=== PATIENT | female | born 1985 | race Caucasian/White ===

== ENCOUNTER 2016-09-20 16:38 | Inpatient (IN) ==
--- NOTE | 2016-09-20 17:27 | Emergency Department Note ---
Disposition Clinical Impression: NSTEMI (non-ST elevated myocardial infarction), Elevated troponin, Chest pain Disposition: Admitted As Inpatient Condition: Fair General Adult HPI - General Chief complaint: ED Chest Pain Stated complaint: C/P Time Seen by Provider: 09/20/16 17:05 Source: patient Limitations: no limitations Nursing Notes Reviewed: Yes Vital Signs Reviewed: Yes - History of Present Illness Pain Scale: 10 - Related Data Home Medications Medication Instructions Recorded Confirmed No Known Home Drugs 09/20/16 09/20/16 Allergies Allergy/AdvReac Type Severity Reaction Status Date / Time No Known Allergies Allergy Verified 05/04/15 14:18 Past Medical History - Past Medical History Medical history: Reports: diabetes, hypertension, myocardial infarction, other Surgical history: Reports: no surgical history 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 - Social History Smoking Status: Current every day smoker Smokeless Tobacco Status: No Alcohol use: Reports: occasionally Drug use: Reports: marijuana Physical Exam - General Limitations: no limitations General appearance: alert Course Vital Signs Temperature 97.9 F 09/20/16 16:56 Pulse Rate 89 09/20/16 16:56 Respiratory Rate 18 09/20/16 16:56 Blood Pressure 170/116 09/20/16 16:56 O2 Sat by Pulse Oximetry 98 09/20/16 16:56 Temperature 97.9 F 09/20/16 16:56 Pulse Rate 78 09/20/16 18:30 Respiratory Rate 18 09/20/16 18:30 Blood Pressure 143/104 09/20/16 18:30 O2 Sat by Pulse Oximetry 99 09/20/16 18:30 Oxygen Delivery Oxygen Delivery Room Air Medical Decision Making - MDM Narrative Medical decision making narrative: I examined this patient and my medical decision-making was reviewed with the Resident Physician. I agree with the documented findings, disposition and treatment plan as described except to the extent set forth below. Patient seen and evaluated on arrival with Dr. Roblero, I agree with his evaluation and management plan, I supervised the care of the patient's stay. Patient presents with chest discomfort today that for the last couple hours. Rating up into her shoulder. She denies any sweats. Denies any calf or leg pain. Despite her young age she has had a history of a stent in the past. And family history of coronary disease at a young age. Rando workup on her, and most likely admission. She is in agreement with this plan. Chest X-Ray 09/20/16 17:06 IMPRESSION: No acute process. D/ / Morris Nails MD / Morris Nails MD Interpreting Provider: Morris Nails MD 1800 hrs.: Lab called with an elevated troponin at 0.41. She has gotten her nitroglycerin here was started on heparin. Speaking with cardiology for admission. Impression is ACS. With history of cardiac stent. Patient's critical care care time exclusive separately billable procedures is 30 minutes. - Lab Data Result diagrams: 09/20/16 17:28 09/20/16 17:28 Lab Results 09/20/16 09/20/16 09/20/16 Range/Units 17:28 17:28 17:28 WBC 15.2 H (4.3-11.1) K/mcL RBC 5.14 H (3.82-4.97) M/mcL Hgb 13.8 (11.5-15.4) g/dL Hct 41.8 (35.3-44.9) % MCV 81.3 L (83.0-100.0) fL MCH 26.8 L (28.0-33.3) pg MCHC 33.0 (31.6-35.5) g/dL RDW 13.7 (11.5-14.5) % Plt Count 334 (140-400) K/mcL MPV 10.2 (9.4-12.4) fL Immature Gran % 0.3 (0-4) % Seg Neutrophils % 62.5 % Lymphocytes % 29.9 % Monocytes % 4.9 % Eosinophils % 1.5 % Basophils % 0.9 % Neutrophils # 9.5 H (1.6-8.9) K/mcL Lymphocytes # 4.6 (0.6-4.6) K/mcL Monocytes # 0.8 (0.0-1.3) K/mcL Eosinophils # 0.2 (0.0-0.6) K/mcL Basophils # 0.1 (0.0-0.2) K/mcL PT 11.8 (9.4-12.1) Seconds INR 1.1 APTT 30.8 (26.0-36.0) Seconds Sodium 132 L (136-145) mEq/L Potassium 4.0 (3.5-4.5) mEq/L Chloride 105 (98-109) mEq/L Carbon Dioxide 22 (19-29) mEq/L BUN 10 (7-20) mg/dL Creatinine 0.78 (0.57-1.11) mg/dL Est GFR ( Amer) > 60 (> 60) Est GFR (Non-Af Amer) > 60 (> 60) BUN/Creatinine Ratio 13 (6-26) Glucose 254 H (70-99) mg/dL Calculated Osmolality 282 (280-300) Calcium 9.2 (8.6-10.8) mg/dL Troponin I (0-0.03) ng/mL 09/20/16 Range/Units 17:28 WBC (4.3-11.1) K/mcL RBC (3.82-4.97) M/mcL Hgb (11.5-15.4) g/dL Hct (35.3-44.9) % MCV (83.0-100.0) fL MCH (28.0-33.3) pg MCHC (31.6-35.5) g/dL RDW (11.5-14.5) % Plt Count (140-400) K/mcL MPV (9.4-12.4) fL Immature Gran % (0-4) % Seg Neutrophils % % Lymphocytes % % Monocytes % % Eosinophils % % Basophils % % Neutrophils # (1.6-8.9) K/mcL Lymphocytes # (0.6-4.6) K/mcL Monocytes # (0.0-1.3) K/mcL Eosinophils # (0.0-0.6) K/mcL Basophils # (0.0-0.2) K/mcL PT (9.4-12.1) Seconds INR APTT (26.0-36.0) Seconds Sodium (136-145) mEq/L Potassium (3.5-4.5) mEq/L Chloride (98-109) mEq/L Carbon Dioxide (19-29) mEq/L BUN (7-20) mg/dL Creatinine (0.57-1.11) mg/dL Est GFR ( Amer) (> 60) Est GFR (Non-Af Amer) (> 60) BUN/Creatinine Ratio (6-26) Glucose (70-99) mg/dL Calculated Osmolality (280-300) Calcium (8.6-10.8) mg/dL Troponin I 0.41 H* (0-0.03) ng/mL
[2016-09-20] MEDS: Nitroglycerin 0.4 MG TAB.SUBL SL PRN ×3 (17:34→17:49)
[2016-09-20 17:37] LABS: Basophils # 0.1 K/mcL (0.0-0.2); Basophils % 0.9 %; Eosinophils # 0.2 K/mcL (0.0-0.6); Eosinophils % 1.5 %; Hematocrit 41.8 % (35.3-44.9); Hemoglobin 13.8 g/dL (11.5-15.4); Immature Granulocytes % 0.3 % (0-4); Lymphocytes # 4.6 K/mcL (0.6-4.6); Lymphocytes % 29.9 %; Mean Corpuscular Hemoglobin 26.8 pg (28.0-33.3); Mean Corpuscular Volume 81.3 fL (83.0-100.0); Mean Platelet Volume 10.2 fL (9.4-12.4); Monocytes # 0.8 K/mcL (0.0-1.3); Monocytes % 4.9 %; Neutrophils # 9.5 K/mcL (1.6-8.9); Platelet Count 334 K/mcL (140-400); Red Blood Count 5.14 M/mcL (3.82-4.97); Red Cell Distribution Width 13.7 % (11.5-14.5); Segmented Neutrophils % 62.5 %
[2016-09-20 17:40] LABS: INR 1.1; Prothrombin Time 11.8 Seconds (9.4-12.1)
[2016-09-20 17:42] LABS: Activated Partial Thrombo Time 30.8 Seconds (26.0-36.0)
[2016-09-20 17:46] LABS: BUN/Creatinine Ratio 13 (6-26); Blood Urea Nitrogen 10 mg/dL (7-20); Calcium 9.2 mg/dL (8.6-10.8); Carbon Dioxide 22 mEq/L (19-29); Chloride 105 mEq/L (98-109); Glucose 254 mg/dL (70-99); Osmolality,Calculated 282 (280-300); Sodium 132 mEq/L (136-145); eGFR For African Americans > 60 (> 60); eGFR For Non-African Americans > 60 (> 60)
--- NOTE | 2016-09-20 17:53 | Emergency Department Note ---
Disposition Clinical Impression: NSTEMI (non-ST elevated myocardial infarction), Elevated troponin Chest pain Qualifiers: Chest pain type: unspecified Qualified Code(s): R07.9 - Chest pain, unspecified Disposition: Admitted As Inpatient Condition: Fair Referrals: Shayla Perez MD [Primary Care Provider] - Forms: ED Satisfaction Letter Time of Disposition: 18:17 Chest Pain HPI - General Chief Complaint: ED Chest Pain Stated Complaint: C/P Time Seen by Provider: 09/20/16 17:05 Source: patient Mode of arrival: ambulatory Limitations: no limitations Vital Signs Reviewed: Yes Nursing Notes Reviewed: Yes - History of Present Illness HPI Narrative: Patient is a 31-year-old female with past medical history of ID, stent placement 1. Chest is a history of diabetes, hypertension, high cholesterol. She presents today due to chest pain that began Tuesday. It has been intermittent, lasts for about 15-20 minutes, substernal, radiation to left scapula, worse with exertion. She says that the pain has been going away after 15-20 minutes and that is why she has not sought medical attention. Today, the pain has been constant for the past hour or 2. Denies any nausea, vomiting, diarrhea, abdominal pain. She does state that this feels like her previous ID. Severity scale (1-10): 8 - Related Data Home Medications Medication Instructions Recorded Confirmed No Known Home Drugs 09/20/16 09/20/16 Allergies Allergy/AdvReac Type Severity Reaction Status Date / Time No Known Allergies Allergy Verified 05/04/15 14:18 All systems ED: reviewed and negative except as stated. 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 Absent : tenderness - Respiratory Respiratory exam: Present: normal lung sounds bilaterally - Cardiovascular Cardiovascular exam: Present: regular rate, normal rhythm, normal heart sounds - Abdominal Exam Abdominal exam: Present: soft, Non-Tender. Absent: tenderness, distention, guarding, rebound, rigidity - Extremities Exam Extremities exam: Present: normal inspection, full ROM. Absent: tenderness, pedal edema - Neurological Exam Neurological exam: Present: alert, oriented X3 - Psychiatric Psychiatric exam: Present: normal affect, normal mood - Skin Skin exam: Present: warm, dry, intact, normal color Course Course Narrative: Blood pressure was 170 systolic on presentation. Patient took 325 mg aspirin at home. She did not take any nitroglycerin at home. Physical exam shows no chest tenderness to palpation, lungs clear to auscultation. Due to history, cardiac workup was obtained. EKG shows normal sinus rhythm with T-wave inversions in V1, lead 2, Q waves in 2, 3, aVF. No acute changes from previous EKG in May 2016. Patient was given 3 nitroglycerin and pain went from a 10 to a 7 or 8. Troponin came back at 0.41. t We will start heparin drip, consult cardio, and admit to hospitalist. 18:[address] Moran with cardiology. He recommended heparin drip, nitroglycerin drip for pain control and loading dose of Plavix 600 mg at the patient has not been taking Plavix at home. Patient confirms that she is not taking any medication at home, not taking Plavix. We will start nitro drip and see if we can get pain down to 0. Vital Signs Temperature 97.9 F 09/20/16 16:56 Pulse Rate 89 09/20/16 16:56 Respiratory Rate 18 09/20/16 16:56 Blood Pressure 170/116 09/20/16 16:56 O2 Sat by Pulse Oximetry 98 09/20/16 16:56 Temperature 97.9 F 09/20/16 16:56 Pulse Rate 78 09/20/16 18:30 Respiratory Rate 18 09/20/16 18:30 Blood Pressure 143/104 09/20/16 18:30 O2 Sat by Pulse Oximetry 99 09/20/16 18:30 Oxygen Delivery Oxygen Delivery Room Air Chest Pain - MDM Narrative Medical decision making narrative: Blood pressure was 170 systolic on presentation. Patient took 325 mg aspirin at home. She did not take any nitroglycerin at home. Physical exam shows no chest tenderness to palpation, lungs clear to auscultation. Due to history, cardiac workup was obtained. EKG shows normal sinus rhythm with T-wave inversions in V1, lead 2, Q waves in 2, 3, aVF. No acute changes from previous EKG in May 2016. Patient was given 3 nitroglycerin and pain went from a 10 to a 7 or 8. Troponin came back at 0.41. t We will start heparin drip, consult cardio, and admit to hospitalist. 18:[address] Moran with cardiology. He recommended heparin drip, nitroglycerin drip for pain control and loading dose of Plavix 600 mg at the patient has not been taking Plavix at home. Patient confirms that she is not taking any medication at home, not taking Plavix. We will start nitro drip and see if we can get pain down to 0. - Medical Records Medical records reviewed: Yes I reviewed the patient's medical records. - Lab Data Lab results reviewed: Yes I reviewed the patient's lab results. Result diagrams: 09/20/16 17:28 09/20/16 17:28 Lab Results 09/20/16 09/20/16 09/20/16 Range/Units 17:28 17:28 17:28 WBC 15.2 H (4.3-11.1) K/mcL RBC 5.14 H (3.82-4.97) M/mcL Hgb 13.8 (11.5-15.4) g/dL Hct 41.8 (35.3-44.9) % MCV 81.3 L (83.0-100.0) fL MCH 26.8 L (28.0-33.3) pg MCHC 33.0 (31.6-35.5) g/dL RDW 13.7 (11.5-14.5) % Plt Count 334 (140-400) K/mcL MPV 10.2 (9.4-12.4) fL Immature Gran % 0.3 (0-4) % Seg Neutrophils % 62.5 % Lymphocytes % 29.9 % Monocytes % 4.9 % Eosinophils % 1.5 % Basophils % 0.9 % Neutrophils # 9.5 H (1.6-8.9) K/mcL Lymphocytes # 4.6 (0.6-4.6) K/mcL Monocytes # 0.8 (0.0-1.3) K/mcL Eosinophils # 0.2 (0.0-0.6) K/mcL Basophils # 0.1 (0.0-0.2) K/mcL PT 11.8 (9.4-12.1) Seconds INR 1.1 APTT 30.8 (26.0-36.0) Seconds Sodium 132 L (136-145) mEq/L Potassium 4.0 (3.5-4.5) mEq/L Chloride 105 (98-109) mEq/L Carbon Dioxide 22 (19-29) mEq/L BUN 10 (7-20) mg/dL Creatinine 0.78 (0.57-1.11) mg/dL Est GFR ( Amer) > 60 (> 60) Est GFR (Non-Af Amer) > 60 (> 60) BUN/Creatinine Ratio 13 (6-26) Glucose 254 H (70-99) mg/dL Calculated Osmolality 282 (280-300) Calcium 9.2 (8.6-10.8) mg/dL Troponin I (0-0.03) ng/mL 09/20/16 Range/Units 17:28 WBC (4.3-11.1) K/mcL RBC (3.82-4.97) M/mcL Hgb (11.5-15.4) g/dL Hct (35.3-44.9) % MCV (83.0-100.0) fL MCH (28.0-33.3) pg MCHC (31.6-35.5) g/dL RDW (11.5-14.5) % Plt Count (140-400) K/mcL MPV (9.4-12.4) fL Immature Gran % (0-4) % Seg Neutrophils % % Lymphocytes % % Monocytes % % Eosinophils % % Basophils % % Neutrophils # (1.6-8.9) K/mcL Lymphocytes # (0.6-4.6) K/mcL Monocytes # (0.0-1.3) K/mcL Eosinophils # (0.0-0.6) K/mcL Basophils # (0.0-0.2) K/mcL PT (9.4-12.1) Seconds INR APTT (26.0-36.0) Seconds Sodium (136-145) mEq/L Potassium (3.5-4.5) mEq/L Chloride (98-109) mEq/L Carbon Dioxide (19-29) mEq/L BUN (7-20) mg/dL Creatinine (0.57-1.11) mg/dL Est GFR ( Amer) (> 60) Est GFR (Non-Af Amer) (> 60) BUN/Creatinine Ratio (6-26) Glucose (70-99) mg/dL Calculated Osmolality (280-300) Calcium (8.6-10.8) mg/dL Troponin I 0.41 H* (0-0.03) ng/mL - Radiology Data Radiology results reviewed: Yes I reviewed the patient's radiology results. Chest X-Ray 09/20/16 17:06 IMPRESSION: No acute process. D/ / Morris Nails MD / Morris Nails MD Interpreting Provider: Morris Nails MD - EKG Data EKG attestation: Yes I reviewed and interpreted this EKG. EKG results narrative: 09/20/2016 at 17:09. No masses rhythm. Rate 77. HI 199. QRS 115. QTC 418. Normal axis. T-wave inversions in lead 3, V1. Q-wave in leads 2, 3, aVF. No acute ST elevation or depression. No acute changes from previous EKG on 2016. S.B.A.R. - S.B.A.R. Situation: Demographics, MOA Background: Presenting Complaint, Relevant PMH, Meds, & Allergies Assessment: Vital Signs, Course and respsone to treatment, Exam Concerns, Patient/Family Expectation, Pertinant Lab Results, Outstanding Labs Recommendation: Barrier(s) to disposition, Recommendation based on pending studies, treatments, or consults S.B.A.R. Report Given to: Keya GuzmánASarah Repor Time: 18:49
[2016-09-20] MEDS ORDERED: *HR* Heparin 5,000 UNIT/ML VIAL IVP PRN ×2 (18:00)
[2016-09-20] MEDS ORDERED: Heparin 25,000 UNIT/500 ML D5W 25,000 UNIT/500 ML MLS IVC SCH ×2 (18:00→20:45)
[2016-09-20] MEDS ORDERED: *HR* Heparin 5,000 UNIT/ML VIAL IVP ONE (18:00)
[2016-09-20] MEDS ORDERED: Nitroglycerin 25 MG/250 ML INFUS..BTL IVC SCH (18:15)
--- NOTE | 2016-09-20 20:02 | Internal Med History&Physical ---
<Bautista Lim - Last Filed: 09/21/16 02:20> Date of Encounter: 09/21/16 Time of Encounter: 19:58 Assessment and Plan (1) NSTEMI (non-ST elevated myocardial infarction) Current visit: Yes Status: Acute 31-year-old female with a history of hypertension, hyperlipidemia, coronary artery disease, drug-eluting stent 1 in the last year, type 2 diabetes and daily smoker admitted with chest pain and elevated troponin 1. Patient has been off her medications for 6 months. EKG demonstrates normal sinus rhythm with appropriate rate and axis, no MI prolongation or ST elevations or depressions. Compared to her previous EKG performed 05/06/2016 which had inverted T waves in V2. 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 - Trending troponins 3 (3) CAD (coronary artery disease) Current visit: No Status: Acute Significant medical history of coronary artery disease as mentioned above. - Atorvastatin 80 mg by mouth daily Qualifiers: Coronary Disease-Associated Artery/Lesion type: [place] artery [place] vs. transplanted heart: [place] heart Associated angina: with unstable angina Qualified Code(s): I25.110 - Atherosclerotic heart disease of [place] coronary artery with unstable angina pectoris (4) Diabetes Current visit: No Status: Acute Patient is a known type II diabetic with currently uncontrolled type 2 diabetes. Current glucose is 254. Patient states she has not taken any medications including her metformin for 6 months. Plan: - Before meals and at bedtime glucose checks - Low-dose insulin sliding scale Qualifiers: Qualified Code(s): E11.9 - Type 2 diabetes mellitus without complications (5) HTN (hypertension) Current visit: Yes Status: Acute Patient has known hypertension, current blood pressure is elevated. - Patient started on known of the therapy with Toprol-XL 25 mg - Address blood pressures if they stay elevated. Qualifiers: Qualified Code(s): I10 - Essential (primary) hypertension (6) Hyperlipidemia Current visit: Yes Status: Acute Patient is a history of hyperlipidemia currently not taking any medications at home. - With current medical conditions including diabetes, coronary artery disease, recent stent patient's LDL goal should be less than 50. Qualifiers: Qualified Code(s): E78.5 - Hyperlipidemia, unspecified (7) Tobacco abuse Current visit: Yes Status: Acute Daily tobacco abuser, 18 pack year history. - Likely contributing to patient's current medical conditions. - Smoking cessation has been discussed with the patient. Internal Medicine - H&P: HPI Chief complaint: chest pain Admitted From: Emergency Dept Plans for Post Hospital Care: Home History of present illness: Ms. Brady is a 31 year old female pmh BILL x1 to proximal LAD, coronary artery disease, type 2 diabetes, hypertension, hyperlipidemia, tobacco abuser, marijuana user was admitted to a [facility] with chest pain. Ms. Brady says she started having chest pain on Tuesday that originates substernally and radiated to her right shoulder blade. She said it was similar to her last heart attack but she was hoping that it would go away. She said the pain would wax and wane in nature but every time he came back it was worse in intensity. She waited the weekend hoping that it would improve on its own. She mentioned that she has not taken any of her prescription medications including Brilinta or aspirin for over 6 months as she was told her insurance had lapsed and she did not have any coverage. She does smoke 1 pack per day since the age of 14 and will give her a [id number] of smoking. The chest pain was described as crushing radiating to the right shoulder blade waxed and waned in nature. 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 She does mention that the chest pain improved significantly after starting the nitroglycerin drip and heparin drip but did not improve with sublingual nitroglycerin and she was on Imdur prior. She did have sweating, shortness of breath and a headache with these chest pains but denies any blurry vision, difficulty with swallowing, palpitations, abdominal pain nausea vomiting diarrhea constipation, swelling in her legs, change or burning or discomfort with urination or defecation. Past Med Surg Social Fam HX - Past Medical History Medical history: diabetes, hypertension, myocardial infarction, other Psychiatric history: no psych history - Past Surgical History Surgical History: no surgical history - Social History Smoking Status: Current every day smoker Smokeless Tobacco Status: No Alcohol use: occasionally Drug use: marijuana - Family History Father Living Status: Mother Living Status: Still Living Internal Medicine - H&P: Meds No Known Home Drugs 09/20/16 [History] Allergies No Known Allergies Allergy (Verified 05/04/15 14:18) All Systems PM: A 10-system review of systems was performed and is negative for pertinent findings except as documented above in the HPI. - Constitutional Constitutional: night sweats, no chills, no fever(s) - EENT Eyes: no change in vision, no discharge, no pain, no photophobia Ears: no ear discharge, no ear pain, no tinnitus Nose, mouth and throat: no dysphagia, no nasal discharge, no neck pain, no sore throat - Cardiovascular Cardiovascular ROS IM: chest pain, dyspnea, no diaphoresis, no lightheadedness, no palpitations, no syncope - Respiratory Respiratory: no cough, no dyspnea, no wheezing, no excessive phlegm production - Gastrointestinal Gastrointestinal: no abdominal pain, no diarrhea, no hematemesis, no hematochezia, no melena, no nausea, no vomiting - Genitourinary Genitourinary: no change in urinary stream, no dysuria, no flank pain, no hematuria - Musculoskeletal Musculoskeletal ROS IM: no numbness, no tingling - Integumentary Integumentary IM: no rash, no unusual bruising - Neurological Neurological ROS: no confusion, no convulsions, no focal weakness, no numbness, no tingling, no tremor(s) - Hematologic/Lymphatic Hematologic/Lymphatic: no easy bruising - Constitutional Vitals: Temp Pulse Resp BP Pulse Ox 98.1 F 73 16 137/67 96 09/20/16 19:48 09/20/16 19:48 09/20/16 19:48 09/20/16 19:48 09/20/16 19:48 - Head Head exam: Present: atraumatic, normocephalic - Eye Eye exam: Present: PERRL, conjuntiva pink, sclera anicteric Pupils: Present: PERRL - Neck Neck exam general surgery: Present: supple, trachea midline. Absent: lymphadenopathy - Respiratory Respiratory exam: Present: CTAB. Absent: accessory muscle use, rales, rhonchi, wheezes - Cardiovascular Cardiovascular exam: Present: RRR, +S1, +S2. Absent: diastolic murmur, gallop, rubs, systolic murmur - GI/Abdominal GI/Abdominal exam: Present: normal bowel sounds, soft, no peritoneal signs. Absent: distended, tenderness - Extremities Exam Extremities exam: Present: warm, radial pulses palpable and symetrical. Absent : calf tenderness, cyanotic, pedal edema - Neurological Exam Neurological exam: Present: CN II-XII intact, oriented X3, no focal deficits. Absent: pronater drift, facial droop, speech deficit - Skin Skin exam: Present: dry, intact Internal Med - H&P Results - Labs CBC & Chem 7: 09/21/16 01:12 09/21/16 01:12 <Konstantin Wilson - Last Filed: 09/21/16 02:56> Date of Encounter: 09/21/16 - Cardiovascular Cardiovascular ROS IM: chest pain, dyspnea, dyspnea on exertion - Respiratory Respiratory: no cough, no hemoptysis - Musculoskeletal Musculoskeletal ROS IM: no arthralgias, no back pain - Psychiatric Psychiatric: no anxiety, no depression - Endocrine Endocrine IM: no flushing, no polydipsia, no polyuria - Allergic/Immunologic Allergic/Immunologic: no GI upset with certain foods - Constitutional Vitals: Temp Pulse Resp BP Pulse Ox 97.8 F 79 18 115/67 96 09/21/16 01:00 09/21/16 01:00 09/21/16 01:00 09/21/16 01:00 09/20/16 19:48 General appearance: Present: A&O X 3, no acute distress - Eye Eye exam: Present: EOMI, PERRL. Absent: scleral icterus Pupils: Present: normal accommodation - Neck Neck exam general surgery: Present: full ROM, supple. Absent: tenderness - Expanded Neck Exam Neck exam: Absent: carotid bruit - Respiratory Respiratory exam: Present: CTAB. Absent: chest wall tenderness, rales, respiratory distress, rhonchi, wheezes - Cardiovascular Cardiovascular exam: Present: RRR, +S1, +S2. Absent: diastolic murmur, systolic murmur - GI/Abdominal GI/Abdominal exam: Present: soft. Absent: tenderness - Extremities Exam Extremities exam: Present: radial pulses palpable and symetrical - Back Exam Back exam: Present: normal inspection. Absent: CVA tenderness (L), CVA tenderness (R) - Neurological Exam Neurological exam: Present: no focal deficits - Psychiatric Psychiatric exam: Present: flat affect. Absent: anxious - Skin Skin exam: Present: dry, warm. Absent: rash Internal Med - H&P Results - Labs CBC & Chem 7: 09/21/16 01:12 09/21/16 01:12 Labs: Short CBC 09/21/16 Range/Units 01:12 WBC 15.7 H (4.3-11.1) K/mcL Hgb 13.4 (11.5-15.4) g/dL Hct 39.9 (35.3-44.9) % Plt Count 309 (140-400) K/mcL Neutrophils # 8.7 (1.6-8.9) K/mcL BMP 09/21/16 01:12 Sodium 133 L Potassium 3.7 Chloride 106 Carbon Dioxide 21 BUN 9 Creatinine 0.71 Glucose 169 H Calcium 8.7 Cardiac Enzymes 09/21/16 Range/Units 01:12 Troponin I 3.43 H* (0-0.03) ng/mL Liver Function 09/21/16 Range/Units 01:12 Total Bilirubin 0.5 (0.2-1.2) mg/dL AST 23 (5-34) Units/L ALT 11 (0-55) Units/L Alkaline Phosphatase 72 (38-126) Units/L Albumin 3.1 L (3.5-5.0) g/dL - EKG Data -: EKG Interpreted by Myself - EKG Data Prior EKG available for review: yes When compared to previous EKG: there is no significant change EKG comments: 09/21/16 02:48 NSR; no acute ST-T changes; repeat EKG later this evening remains unchanged - Diagnostic Studies Chest x-ray Status: image reviewed by me (negative) - Attending Attestation I discussed the patient NELSON LAGOON, PMH, ROS, lab data, and exam findings with Dr. Lim. I then saw and examined patient independently as well. Patient has remained chest pain free since admission from ER. Repeat troponin is up from 0.[address] Lim and I reassessed the patient, and she remains chest pain free. Repeat EKG is negative. We will continue heparin drip, NTG gtt, and cardiac meds as ordered by Dr. Lim. Cardiology has been consulted and patient will most likely undergo LHC later today. She will remain npo for probable LHC this morning. We counseled patient extensively on the need to quit smoking, continue her prescriptions, and follow up/comply with medical care. Other than my comments noted above and exam findings, I agree with Dr. Lim's assessment and plan.
[2016-09-20] MEDS ORDERED: Naloxone 0.4 MG/ML INJ IVP PRN (20:33)
[2016-09-20] MEDS ORDERED: Ondansetron ODT 4 MG TAB.RAPDIS SL PRN (20:33)
[2016-09-20] MEDS ORDERED: Acetaminophen 325 MG TABLET PO PRN (20:33)
[2016-09-20] MEDS ORDERED: D5% in Water 1,000 ML IVC PRN (20:57)
[2016-09-20] MEDS ORDERED: Dextrose Gel 15 GM PO PRN ×2 (20:57)
[2016-09-20] MEDS ORDERED: *HR* Dextrose 50 % in Water (Syg) 50 ML SYRINGE IVP PRN (20:57)
[2016-09-20 20:58] LABS: Chol/HDL Ratio 7.1 (0-4.9)
[2016-09-20 22:18] LABS: Hemoglobin A1C 9.6 %
[2016-09-20] MEDS: 0.9 % Sodium Chloride 1,000 ML IVC SCH (22:56)
[2016-09-20] MEDS: Metoprolol XL (24 HR) Succ 25 MG TAB.ER.24H PO SCH (22:56)
[2016-09-20] MEDS: Insulin LISPRO 300 UNITS/3 ML VIAL SQ SCH (23:09)
[2016-09-20] MEDS: *HR* Morphine 2 MG/ML SYRINGE IVP PRN (23:17)
[2016-09-21 01:31] LABS: Basophils # 0.2 K/mcL (0.0-0.2); Eosinophils # 0.3 K/mcL (0.0-0.6); Hematocrit 39.9 % (35.3-44.9); Hemoglobin 13.4 g/dL (11.5-15.4); Immature Granulocytes % 0.3 % (0-4); Lymphocytes # 5.7 K/mcL (0.6-4.6); Lymphocytes % 36.4 %; Mean Corpuscular HGB Conc 33.6 g/dL (31.6-35.5); Mean Corpuscular Hemoglobin 27.2 pg (28.0-33.3); Mean Corpuscular Volume 81.1 fL (83.0-100.0); Mean Platelet Volume 10.5 fL (9.4-12.4); Monocytes # 0.8 K/mcL (0.0-1.3); Monocytes % 4.9 %; Neutrophils # 8.7 K/mcL (1.6-8.9); Platelet Count 309 K/mcL (140-400); Red Blood Count 4.92 M/mcL (3.82-4.97); Red Cell Distribution Width 13.9 % (11.5-14.5); Segmented Neutrophils % 55.4 %
[2016-09-21 01:36] LABS: INR 1.1; Prothrombin Time 12.2 Seconds (9.4-12.1)
[2016-09-21 01:50] LABS: Alanine Aminotransferase 11 Units/L (0-55); Albumin 3.1 g/dL (3.5-5.0); Albumin/Globulin Ratio 0.9 (1.1-2.2); Alkaline Phosphatase 72 Units/L (38-126); Aspartate Amino Transferase 23 Units/L (5-34); BUN/Creatinine Ratio 13 (6-26); Bilirubin,Total 0.5 mg/dL (0.2-1.2); Blood Urea Nitrogen 9 mg/dL (7-20); Calcium 8.7 mg/dL (8.6-10.8); Carbon Dioxide 21 mEq/L (19-29); Chloride 106 mEq/L (98-109); Globulin 3.5 g/dL (2.4-3.5); Glucose 169 mg/dL (70-99); Osmolality,Calculated 279 (280-300); Potassium 3.7 mEq/L (3.5-4.5); Sodium 133 mEq/L (136-145); Total Protein 6.6 g/dL (6.0-8.3); eGFR For African Americans > 60 (> 60); eGFR For Non-African Americans > 60 (> 60)
[2016-09-21] MEDS: Insulin LISPRO 300 UNITS/3 ML VIAL SQ SCH ×4 (07:35→19:46)
[2016-09-21] MEDS: Aspirin 81 MG TAB.CHEW PO SCH (07:43)
[2016-09-21] MEDS: Metoprolol XL (24 HR) Succ 25 MG TAB.ER.24H PO SCH (07:43)
--- NOTE | 2016-09-21 09:32 | Cardiology Consult Note ---
Date of Encounter: 09/21/16 Time of Encounter: 09:00 Assessment and Plan (1) NSTEMI (non-ST elevated myocardial infarction) Current Visit: Yes Status: Acute Troponin 0.41, 3.43, 5.46. Non-specific ECG changes. Chest pain free upon exam; reports intermittent chest/shoulder discomfort since Tuesday. [facility] 2015 s/p successful PCI of pLAD, EF preserved; reports quit taking all cardiac meds 2015. ASA 324 mg, plavix 600 mg given in ED. Started on Heparin/NTG gtt. Continue asa , statin, and betablocker. Echocardiogram completed, results pending. Cardiac rehab consulted. Recommend [facility] with possible PCI; alternatives, risks, and benefits discussed. She is agreeable to proceed. Long discussion regarding importance of medication compliance discussed. Further recommendations to follow. (2) CAD (coronary artery disease) Current Visit: Yes Status: Chronic Hx of CAD s/p PCI with BILL 2015. Has been noncompliant with f/u and medications. Plan as above. Emphasized importance of medication compliance including uninterrupted DAPT following PCI. Qualifiers: Coronary Disease-Associated Artery/Lesion type: [place] artery [place] vs. transplanted heart: [place] heart Associated angina: with unstable angina Qualified Code(s): I25.110 - Atherosclerotic heart disease of [place] coronary artery with unstable angina pectoris Discussion w patient/family: The assessment and plan as outlined above was discussed with the patient and/or family members who expressed understanding and agreement. All questions were answered. Thank you for involving us in the care of your patient. Please call with any questions. The patient will be discussed and reviewed with Dr. Moran; changes to be made accordingly. History of Present Illness Consult date: 09/21/16 Requesting physician: Konstantin Wilson Consult reason: NSTEMI Chief complaint: Chest pain History of present illness: Ms. Brady is a 31 year old female with PMHx significant for CAD s/p PCI, poorly controlled DMII, HTN, HLD, tobacco/marijuana abuse who presented to the ED with worsening right shoulder/chest discomfort. Reports symptoms initially started on Tuesday and were intermittent--worsen with exertion and would improve with rest. Chest discomfort described as pressure/heaviness and radiates to neck and shoulder--similar symptoms to prior PA. She woke up yesterday with constant chest discomfort which prompted ED evaluation. Last PCI with BILL , patient was discharged from Cardiology due to multiple "no shows." She reports she quit taking all cardiac medications last fall, 2015; reports does not take any medications currently. Prior CV testing: [facility] 05/05/15: severe 1v CAD s/p BILL to pLAD; existing 50% pRCA stenosis, 80% 1st RPL (FFR 0.82). TTE 05/28/15: LVEF 60%, normal wall motion, no obvious valvular dysfunction Past Med Surg Social Fam HX - Past Medical History Attestation: Yes The following information was validated with the patient. Source: patient, old records reviewed Medical history: coronary artery disease, diabetes, hyperlipidemia, hypertension , myocardial infarction Psychiatric history: no psych history - Past Surgical History Surgical History: angioplasty/stent - Social History Smoking Status: Current every day smoker Packs per day: 1 ppd Smokeless Tobacco Status: No Alcohol use: occasionally Drug use: marijuana - Family History Father Living Status: Mother Living Status: Still Living Medications and Allergies No Known Home Drugs 09/20/16 [History] Allergies No Known Allergies Allergy (Verified 05/04/15 14:18) All Systems Review: A 10-system review of systems was performed and is negative for pertinent findings except as documented above in the HPI. - Cardiovascular Cardiovascular: as per HPI Physical Examination Vital Signs, Last 4 Hours Temp Pulse Resp BP Pulse Ox 09/21/16 07:22 97.9 F 81 15 136/92 98 General: Conversant, No Apparent Distress HEENT: Atraumatic, Normocephaly, Mucus Membranes Moist Neck: No JVD, Normal carotid pulses Cardiac: Reg Rate and Rhythm, Normal S1 and S2, No Murmur Lungs: Normal Breath Sounds, No Wheeze, Rales, Rhonchi Neuro: Alert and responsive, No focal deficits noted Abdomen: Soft, Non-Tender Skin: No rashes noted on visualized skin Musculoskeletal: No Chest Wall Tenderness Extremities: No Clubbing, No Cyanosis, No Edema, Normal Pulses Results 09/21/16 01:12 09/21/16 01:12 Lab Results 09/21/16 09/21/16 09/21/16 01:12 01:12 01:12 WBC 15.7 H Hgb 13.4 Hct 39.9 Plt Count 309 INR 1.1 APTT 38.7 H Sodium Potassium Chloride Carbon Dioxide BUN Creatinine Glucose Calcium Total Bilirubin AST ALT Alkaline Phosphatase Troponin I 09/21/16 09/21/16 09/21/16 01:12 01:12 07:34 WBC Hgb Hct Plt Count INR APTT Sodium 133 L Potassium 3.7 Chloride 106 Carbon Dioxide 21 BUN 9 Creatinine 0.71 Glucose 169 H Calcium 8.7 Total Bilirubin 0.5 AST 23 ALT 11 Alkaline Phosphatase 72 Troponin I 3.43 H* 5.46 H* 09/21/16 07:34 WBC Hgb Hct Plt Count INR APTT 57.3 H Sodium Potassium Chloride Carbon Dioxide BUN Creatinine Glucose Calcium Total Bilirubin AST ALT Alkaline Phosphatase Troponin I - Imaging and Cardiology Echo: report reviewed Other Results: 12 hour tele: avg HR=67 SR. No significant event noted. - EKG Interpretation EKG results cardiology: personally reviewed Consult Discharge Plan - Plan Referrals: Shayla Perez MD [Primary Care Provider] -
[2016-09-21] MEDS: 0.9 % Sodium Chloride 1,000 ML IVC SCH (10:17)
--- NOTE | 2016-09-21 12:40 | Internal Med Progress Note ---
Date of Encounter: 09/21/16 Time of Encounter: 12:38 - Assessment and plan (1) NSTEMI (non-ST elevated myocardial infarction) Current Visit: Yes Status: Acute Assessment and plan: Cardiology evaluation appreciated Scheduled for [facility] today will continue ASA, BB, statin, O2 supplementation heparin gtt until [facility] (2) Elevated troponin Current Visit: No Status: Acute (3) Noncompliance Current Visit: Yes Status: Acute Assessment and plan: Pt educated about the need to be compliant with her home medications (4) CAD (coronary artery disease) Current Visit: Yes Status: Chronic Qualifiers: Coronary Disease-Associated Artery/Lesion type: [place] artery [place] vs. transplanted heart: [place] heart Associated angina: with unstable angina Qualified Code(s): I25.110 - Atherosclerotic heart disease of [place] coronary artery with unstable angina pectoris (5) Diabetes Current Visit: No Status: Acute Assessment and plan: hyperglycemia secondary to noncompliance continue sliding scale insulin algorithm monitor FS and BG will adjust insulin therapy as per BG readings ADA diet Qualifiers: Diabetes mellitus type: type 2 Diabetes mellitus complication status: with unspecified complications Diabetes mellitus [place] insulin use: unspecified assisted insulin use status Qualified Code(s): E11.8 - Type 2 diabetes mellitus with unspecified complications (6) HTN (hypertension) Current Visit: Yes Status: Acute Assessment and plan: BP within acceptable range will continue to monitor and continue home medications Qualifiers: Hypertension type: essential hypertension Qualified Code(s): I10 - Essential (primary) hypertension (7) Hyperlipidemia Current Visit: Yes Status: Acute Assessment and plan: continue statin therapy Qualifiers: Hyperlipidemia type: unspecified Qualified Code(s): E78.5 - Hyperlipidemia , unspecified (8) Tobacco abuse Current Visit: Yes Status: Acute Assessment and plan: smoking cessation counseling provided pt not ready to quit at this time refused nicotine supplementation therapy - Subjective Interval history: Pt seen and examined with family present at bedside. Resting in bed and denies any chest pain, sob, or any other distress at this time. Scheduled for [facility] later today. Pt has history of MT in the past with placement of stent and has been noncompliant with her home medications. She has not taken any of her home medications in the last few months. Med compliance counseling provided - Constitutional Vitals: Temp Pulse Resp BP Pulse Ox 97.9 F 82 15 128/81 98 09/21/16 11:03 09/21/16 11:03 09/21/16 11:03 09/21/16 11:03 09/21/16 11:03 General appearance: Present: A&O X 3, no acute distress, answers questions appropriately - Head Head exam: Present: atraumatic, normocephalic - Eye Eye exam: Present: normal appearance, conjuntiva pink, sclera anicteric - ENT Additional comments: poor oral hygiene, full dentures - Respiratory Respiratory exam: Present: CTAB. Absent: accessory muscle use, rales, rhonchi, wheezes - Cardiovascular Cardiovascular exam: Present: RRR, +S1, +S2. Absent: diastolic murmur, gallop, rubs, systolic murmur - GI/Abdominal GI/Abdominal exam: Present: normal bowel sounds, soft, no peritoneal signs. Absent: distended, tenderness - Extremities Exam Extremities exam: Present: warm, radial pulses palpable and symetrical. Absent : calf tenderness, cyanotic, pedal edema - Neurological Exam Neurological exam: Present: alert, oriented X3 - Psychiatric Psychiatric exam: Present: normal affect, normal mood Internal Medicine: Result - Labs CBC & Chem 7: 09/21/16 01:12 09/21/16 01:12 Labs: Short CBC 09/21/16 Range/Units 01:12 WBC 15.7 H (4.3-11.1) K/mcL Hgb 13.4 (11.5-15.4) g/dL Hct 39.9 (35.3-44.9) % Plt Count 309 (140-400) K/mcL Neutrophils # 8.7 (1.6-8.9) K/mcL BMP 09/21/16 01:12 Sodium 133 L Potassium 3.7 Chloride 106 Carbon Dioxide 21 BUN 9 Creatinine 0.71 Glucose 169 H Calcium 8.7 Cardiac Enzymes 09/21/16 09/21/16 Range/Units 01:12 07:34 Troponin I 3.43 H* 5.46 H* (0-0.03) ng/mL Liver Function 09/21/16 Range/Units 01:12 Total Bilirubin 0.5 (0.2-1.2) mg/dL AST 23 (5-34) Units/L ALT 11 (0-55) Units/L Alkaline Phosphatase 72 (38-126) Units/L Albumin 3.1 L (3.5-5.0) g/dL - ABG Interpretation ABG results: PT/INR, D-dimer PT 12.2 Seconds (9.4-12.1) H 09/21/16 01:12 - VTE Reasons for not Prescribing Prophylaxis: Not indicated-Anticoagulated or INR therapeutic Consult Discharge Plan - Plan Referrals: Shayla Perez MD [Primary Care Provider] -
[2016-09-21] MEDS ORDERED: 0.9 % Sodium Chloride 1,000 ML ONE ×2 (13:27→14:02)
[2016-09-21] MEDS ORDERED: Heparin 1,000 UNITS/500 mL NS 500 ML ONE (13:27)
[2016-09-21] MEDS ORDERED: *HR* Heparin 10,000 UNIT/10 ML VIAL ONE (13:27)
[2016-09-21] MEDS ORDERED: Nitroglycerin 1,000 MCG/10 ML VIAL IV ONE (13:51)
[2016-09-21] MEDS ORDERED: Verapamil 5 MG/2 ML VIAL ONE (13:51)
--- NOTE | 2016-09-21 13:54 | Pre-Sedation Evaluation ---
Pre-sedation evaluation - Pre-sedation checklist Date of procedure: 09/21/16 Procedure: left heart catheterization Recent Vitals: Last Vital Signs Temp 97.9 F 09/21/16 11:03 Pulse 82 09/21/16 11:03 Resp 15 09/21/16 11:03 BP 128/81 09/21/16 11:03 Pulse Ox 98 09/21/16 11:03 H&P (including ROS) documented in medical record: Yes Previous reaction to sedatives/anesthetics: No Dietary Status: NPO after Midnight Dentition: dentures removed ASA Classification *see protocol: CLASS II-Mild systemic disease Plan of Care: Pt appropriate candidate for procedure/moderate/conscious sedation , Risks/benefits of procedure/sedation discussed w/ patient/family
[2016-09-21] MEDS ORDERED: *HR* Midazolam HCl 5 MG/5 ML VIAL IVP ONE (14:00)
[2016-09-21] MEDS ORDERED: *HR* FentaNYL (PF) 100 MCG/2 ML VIAL ONE (14:00)
[2016-09-21] MEDS ORDERED: Ondansetron 4 MG/2 ML VIAL IVP PRN (14:40)
[2016-09-21] MEDS ORDERED: *HR* HYDROcodone/Acet 5/325 mg TABLET PO PRN (14:40)
--- NOTE | 2016-09-21 14:55 | Invasive Diagnostic Lab Proc ---
Name: Dayana Brady Date of Study: 09/21/2016 Date: 1985 Ht: 68.1in Medical Record#: [id number] Age: 31 Wt: 184.09lb Gender: Female BSA: 1.97 Order #: [id number] BMI: 27.9 Physicians Procedure Physician: Domo Hughes MD, [facility] Referring MD: Referring MD: Staff Name Position Time In Akua Anthony RN Ship/Rec/Doc Control 01:54 PM Alena Cheatham RT (R) Monitor 01:54 PM Katarzyna Mitchell RT (R) Scrub 01:54 PM Janice Ortiz RN 01:55 PM Janice Ortiz RN Monitor 01:58 PM Indications Indication Non-Stemi Procedures Performed Procedure L HRT ARTERY/VENTRICLE ANGIO PRQ CARD BM STENT W/ANGIO 1 VSL Pre-Procedure Checklist Informed consent is complete signed and on chart. H&P is on chart. ID band is on and ID verified with patient. Patient NPO for procedure The procedure was described for the patient and questions were answered. Blood Pressure: 136/92 ECG is on chart. Rhythm: NSR Plan of Care Patient will tolerate the procedure without complications. Adequate level of comfort will be maintained. Hemodynamics will remain stable Patient will recover from procedure without complications. Respiratory function will be maintained. Cardiac rhythm will remain stable. Patient temperature will be maintained. Patient and/or family have verbalized understanding of the procedure. Patient Education Chief Complaint/Reason for Test: Cardiac Cath Developmental Category: Adult (18-64 years) Developmentally Appropriate for Age: Yes Learning Barriers: None Education Needs: Procedure Education Method: Verbal Information Taught: Cardiac Cath Educational Evaluation: Able to repeat information Intravenous Access Time IV Size Location DC'd Fluid/Drip Rate Units RN 02:00 PM 18g 1 1/4" Patent On Arrival Lt Antecubital 02:00 PM 20g 1 1/4" Patent On Arrival Rt Arm Allergies NO KNOWN DRUG ALLERGIES Vital Signs Time BP (mmHg) HR (bpm) O2 Sat. RR (bpm) LOC 136 / 92 81 98 % 15 01:56 PM / % 5 = Fully awake and oriented or at pre-proc level 01:56 PM / % 5 = Fully awake and oriented or at pre-proc level 02:11 PM / % 4 = Oriented but drowsy 02:26 PM / % 4 = Oriented but drowsy 01:57 PM 152 / 95 67 100 % 17 02:02 PM 147 / 96 63 100 % 18 02:07 PM 150 / 121 80 100 % 8 02:12 PM 145 / 95 81 98 % 24 02:17 PM 153 / 83 72 96 % 24 02:22 PM 140 / 67 58 98 % 19 02:27 PM 140 / 79 70 95 % 26 02:32 PM 137 / 81 72 98 % 19 Procedural Medications Time Medication Dose Units Method Given By 01:56 PM Oxygen 2 L/min nasal cannula Akua Anthony RN 02:00 PM Oxygen 2 L/min nasal cannula Akua Anthony RN 02:06 PM Versed 2 mg Intravenous Akua Anthony RN 02:06 PM Fentanyl 50 mcg Intravenous Akua Anthony RN 02:10 PM Versed 1 mg Intravenous Akua Anthony RN 02:10 PM Fentanyl 25 mcg Intravenous Akua Anthony RN 02:11 PM Lidocaine 2% 0.5 ml Subcutaneous Domo Hughes MD, FACC 02:11 PM Heparin 2000 units Nitroglycerin 200 mcg Verapamil 2.5 mg Intraarterial Domo Hughes MD, FACC 02:23 PM Heparin 3000 units Intravenous Akua Anthony RN ASA Classification: CLASS II- Mild systemic disease (i.e. well-controlled diabetes, hypertension, asthma, cigarette smoking) Bart Score Preprocedure Postprocedure Activity 2- Moves 4 extremities sustained head lift Activity 2- Moves 4 extremities sustained head lift Circulation 2- SBP +/= 20 points of pre-anesthetic level Circulation 2- SBP +/= 20 points of pre-anesthetic level Consciousness 2- Awake and alert oriented x 3 Consciousness 2- Awake and alert oriented x 3 O2 Saturation 2- Able to maintain O2 satruation of 92% on room air O2 Saturation 2- Able to maintain O2 satruation of 92% on room air Respiratory 2- Able to deep breathe and cough well Respiratory 2- Able to deep breathe and cough well Total Score 10 Total Score 10 Contrast Agent: Isovue Diagnostic Contrast: 84 ml Total Contrast: 84 ml Fluoro Dose: 454 mGy Activated Clotting Time Time Seconds to Clot 02:23 PM 178 Procedure Log Time Note Enter By 01:51 PM CathStat 01:51 PM Vitals capture started with the following parameters, Patient=Adult, Interval=5 min, Initial Gesywvpf=391 mmHg, Deflation Rate=5 mmHg, Cuff placed on Right Arm 01:53 PM Recorded ECG: HR=62 Condition=Condition 1 01:53 PM Pt arrived to offset label rewinder 2 at 13:53 [email or web address] 01:53 PM Physician arrived 13:53 [email or web address] 01:54 PM Vitals capture stopped. 01:54 PM ASA Class CLASS II- Mild systemic disease (i.e. well-controlled diabetes, hypertension, asthma, cigarette smoking) [email or web address] 01:54 PM Rogerio and chad completed [email or web address] :54 PM Sign in performed according to hospital policy. [email or web address] :54 PM Procedure start 13:54 [email or web address] :54 PM Akua Anthony RN Position: Ship/Rec/Doc Control Time in: 13:54 [email or web address] 01:54 PM Alena Cheatham RT (R) Position: Monitor Time in: 13:54 [email or web address] :55 PM Katarzyna Mitchell RT (R) Position: Scrub Time in: 13:54 [email or web address] 01:55 PM Janice Ortiz RN Position: Time in: 13:55 [email or web address] :55 PM Patient charges- Angio tray pack, Navilyst 3mm J, Pulse Oximetry and ACIST tubing and transducer [email or web address] 01:55 PM Case Delayed No [email or web address] :55 PM Hair removed from procedure site in procedure lab using clippers. Right wrist prepped with Chloraprep by Alena Cheatham (R), safety strap applied then patient was draped. Skin intact. [email or web address] 01:55 PM Hair removed from procedure site in procedure lab using clippers. Right groin prepped with Chloraprep by Alena Cheatham (R), safety strap applied then patient was draped. Skin intact. 3 :56 PM Time: 13:56 Oxygen on at 2 L/min per nasal cannula by [email or web address] PM Time: 13:56 Patient comfortable and pain free: Yes [email or web address] :56 PM Time: 13:56LOC: 5 = Fully awake and oriented or at pre-proc level [email or web address] :56 PM Clinical Presentation: Non-STEMI [email or web address] 01:57 PM Vitals capture started with the following parameters, Patient=Adult, Interval=5 min, Initial Uqpkjqsn=072 mmHg, Deflation Rate=5 mmHg, Cuff placed on Left Arm 01:57 PM HR=67 bpm, NVYJ=258/95 mmhg, OnR8=681.0 %, Resp=17 B/min, Comment=SR 01:58 PM Janice Ortiz RN Position: Monitor Time in: 13:58 [email or web address] 01:58 PM Pressure channel 1 zeroed. 02:00 PM Time: 14:00 Oxygen on at 2 L/min per nasal cannula by Akua Anthony [email or web address] 02:02 PM HR=63 bpm, QFMB=530/96 mmhg, FhD7=447.0 %, Resp=18 B/min, Comment=SR 02:06 PM Time: 14:06 Versed 2 mg Intravenous Given by Akua Anthony RN 02:06 PM Time: 14:06 Fentanyl 50 mcg Intravenous Given by Akua Anthony RN 02:07 PM HR=80 bpm, NUEU=555/121 mmhg, SzT0=251.0 %, Resp=8 B/min, Comment=SR 02:10 PM Time: 14:10 Versed 1 mg Intravenous Given by Akua Anthony RN3 02:10 PM Time: 14:10 Fentanyl 25 mcg Intravenous Given by Akua Anthony RN3 02:11 PM Time out performed according to hospital policy [email or web address] 02:11 PM Time: 14:11 0.5 ml Lidocaine 2% to right radial Subcutaneous Given by Domo Hughes MD, [facility] [email or web address] 02:11 PM Time: 13:56 Patient comfortable and pain free: Yes [email or web address] 02:11 PM Time: 13:56LOC: 5 = Fully awake and oriented or at pre-proc level [email or web address] 02:11 PM Access obtained by percutaneous puncture. 6Fr 10cm Terumo Slaughters sheath placed in right Radial artery. [id number] [email or web address] 02:11 PM Time: 14:11 Patient given 2,000 units Heparin, 200 mcg Nitroglycerin, and 2.5 mg Verapamil Intraarterial by Domo Hughes MD, [facility] [email or web address] 02:12 PM 5Fr TIG catheter inserted over the wire [facility] [email or web address] 02:12 PM 0.035 260cm Navilyst 3mmJ wire [id number] [email or web address] 02:12 PM HR=81 bpm, IUUF=732/95 mmhg, SpO2=98.0 %, Resp=24 B/min, Comment=SR 02:14 PM LCA angiography performed in multiple views. [email or web address] 02:15 PM Recorded Pressure: Ao, HR=75, Condition=Condition 1 (Aorta) Ao 124/95/110 02:15 PM RCA angiography performed in multiple views. [email or web address] 02:15 PM Coronary Dominance: right [email or web address] 02:16 PM Lesion found in Proximal RCA. Pre Stenosis: 50 Pre LIZZIE Flow: [email or web address] 02:16 PM Catheter removed [email or web address] 02:16 PM 5Fr Pigtail catheter inserted over the wire DNC [email or web address] 02:17 PM Lesion found in Distal RCA. Pre Stenosis: 50 Pre LIZZIE Flow: [email or web address] 02:17 PM Lesion found in Mid LAD. Pre Stenosis: 60 Pre LIZZIE Flow: [email or web address] 02:17 PM Pressure channel 1 zero failed. 02:17 PM Pressure channel 1 zeroed. 02:17 PM Lesion found in Mid Circumflex. Pre Stenosis: 90 Pre LIZZIE Flow: [email or web address] 02:17 PM Lesion found in Right PDA. Pre Stenosis: 70 Pre LIZZIE Flow: [email or web address] 02:17 PM Recorded Pressure: LV, HR=74, Condition=Condition 1 (Left Ventricle) LV 137/9/23 02:17 PM HR=72 bpm, ATDG=024/83 mmhg, SpO2=96.0 %, Resp=24 B/min 02:18 PM Recorded Pressure: LV, Ao, HR=74, Condition=Condition 1 (Left Ventricle) LV 138/10/31, (Aorta) Ao 126/83/104 02:18 PM Lesion found in 1st RPL. Pre Stenosis: 80 Pre LIZZIE Flow: [email or web address] 02:19 PM Catheter removed [email or web address] 02:19 PM 5Fr RBL 3.5 [place] guide catheter was used to cannulate the PCI vessel successfully. reused? No [email or web address] 02:20 PM Inflation device was opened. [email or web address] 02:20 PM Wire removed, intact. [email or web address] 02:21 PM .014 [place] 190cm guide wire across target lesion- successful. reused? No [email or web address] 02:22 PM HR=58 bpm, ROWX=392/67 mmhg, SpO2=98.0 %, Resp=19 B/min 02:23 PM At 14:23 the ACT was 178 seconds. [email or web address] 02:23 PM Time: 14:23 Heparin 3000 units Intravenous Given by Akua Anthony RN [email or web address] 02:24 PM Right Coronary, Right Posterior Descending Arteries with Right Posterolateral and Acute Marginal branches with 80 % stenosis. If graft is supplying this area, 0 % stenosis [email or web address] 02:25 PM Mid/Distal Left Anterior Descending Coronary Artery and diagonal branches with 60% stenosis. If graft is supplying this area, 0 % stenosis [email or web address] 02:25 PM Circumflex, Obtuse Marginal, Left Posterior Descending, and Left Posterolateral Coronary Arteries with 90 % stenosis. If graft is supplying this area, 0 % stenosis [email or web address] 02:26 PM 2.0 mm x 15 mm Emerge Monorail balloon across target lesion- successful. reused? No [email or web address] 02:26 PM Time: 14:11 Patient comfortable and pain free: Yes [email or web address] 02:26 PM Time: 14:11LOC: 4 = Oriented but drowsy [email or web address] 02:26 PM Balloon inflated @ 10 gabbie for 15 seconds [email or web address] 02:27 PM HR=70 bpm, MKBW=919/79 mmhg, SpO2=95.0 %, Resp=26 B/min 02:27 PM Balloon catheter removed intact. [email or web address] 02:28 PM 2.25mm x 16mm Rebel [place] [employer] bare metal stent across target lesion- successful Lot #[id number] [email or web address] 02:29 PM Stent deployed @ 12 gabbie for 18 seconds [email or web address] 02:30 PM Stent delivery system removed intact. [email or web address] 02:30 PM 3.0 mm x 6mm NC Emerge balloon across target lesion- successful. reused? No [email or web address] 02:32 PM Balloon inflated @ 20 gabbie for 21 seconds [email or web address] 02:32 PM HR=72 bpm, SBTV=829/81 mmhg, SpO2=98.0 %, Resp=19 B/min 02:33 PM Balloon catheter removed intact. [email or web address] 02:33 PM Guide wire removed intact. [email or web address] 02:33 PM Guide catheter removed intact. [email or web address] 02:33 PM Procedure completed at 14:33 [email or web address] 02:33 PM Sign out completed: Radiation Dose 454.37 mGy Fluoro Time: 5.9 Isovue 370 - 200ml contrast 84 ml given by Domo Hughes MD, [facility]. Complications: NoneCardiac Rehab Consult needed: YesConfirmed administered medications: Yes [email or web address] 02:33 PM Isovue 370 - 500ml,1 Bottle(s) used. [email or web address] 02:33 PM Arterial sheath pulled, Vasc Band closure device used and was Successful S/N. [email or web address] 02:34 PM Post Blood Pressure 137/81 [email or web address] 02:35 PM 14:35 Post Pulses Bilateral DP & PT 1+ [email or web address] 02:35 PM 14:35 Post Pulses Bilateral radial 2+ [email or web address] 02:35 PM 12 ml air in Vasc Band. [email or web address] 02:36 PM Patient is non-compliant with meds. [email or web address] 02:37 PM Information taught Cardiac Cath, PCI, and Vasc Band [email or web address] 02:37 PM Education needs Procedure, Plan of Care, and Responsibilities of Patient in Care [email or web address] 02:37 PM Learning barriers :None [email or web address] 02:37 PM Education Methods Verbal [email or web address] 02:37 PM Education evaluation Able to repeat information [email or web address] 02:37 PM Site status No bleeding/hematoma - Rt Wrist as reported by Katarzyna Mitchell RT (R) at 14:37 [email or web address] 02:37 PM Family placed in consult room. [email or web address] 02:43 PM Time: 14:26LOC: 4 = Oriented but drowsy [email or web address] 02:43 PM Time: 14:26 Patient comfortable and pain free: Yes [email or web address] 02:46 PM Report given to Pineda BARRETT Pt taken to E Room #23. 14:44 [email or web address] 02:48 PM Patient out of room: 14:48 [email or web address] Complications Complication None Hemodynamics Pressures Site Systolic/A Wave Diastolic/V Wave Mean AO 124 95 110 LV 137 9 23 LV 138 10 31 AO 126 83 104 Post Procedure Information Blood Pressure: 137/81 mmHg Post procedural instructions were given Closure Device Time Device Success/Fail 09/21/2016 2:33:00 PM Mechanical Compression Successful Site Checks Time Location Status Staff Sheath In? Note 02:37 PM Rt Wrist No bleeding/hematoma Katarzyna Mitchell RT (R) Pulses Time Site Pre-Procedure Post-Procedure Note 09/21/2016 2:00:00 PM Bilateral DP & PT 1+ 09/21/2016 2:00:00 PM Bilateral radial 2+ 2:35:00 PM Bilateral DP & PT 1+ 2:35:00 PM Bilateral radial 2+ Updated by Katarzyna Mitchell RT(R) on 09/21/2016 2:49:17 PM electronically signed on 09/21/2016 2:50:47 PM with status of Final
--- NOTE | 2016-09-21 15:15 | Electrocardiograph Report ---
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
[2016-09-21] MEDS: *HR* Morphine 2 MG/ML SYRINGE IVP PRN (19:45)
--- NOTE | 2016-09-21 20:08 | Electrocardiograph Report ---
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
[2016-09-22 08:34] LABS: BUN/Creatinine Ratio 12 (6-26); Blood Urea Nitrogen 8 mg/dL (7-20); Calcium 8.8 mg/dL (8.6-10.8); Carbon Dioxide 24 mEq/L (19-29); Chloride 106 mEq/L (98-109); Glucose 176 mg/dL (70-99); Magnesium 1.8 mg/dL (1.6-2.6); Osmolality,Calculated 281 (280-300); Phosphorous 3.1 mg/dL (2.3-4.7); Sodium 134 mEq/L (136-145); eGFR For African Americans > 60 (> 60); eGFR For Non-African Americans > 60 (> 60)
[2016-09-22 08:35] LABS: Basophils # 0.1 K/mcL (0.0-0.2); Basophils % 0.7 %; Eosinophils # 0.2 K/mcL (0.0-0.6); Eosinophils % 1.5 %; Hemoglobin 13.7 g/dL (11.5-15.4); Immature Granulocytes % 0.4 % (0-4); Lymphocytes # 2.8 K/mcL (0.6-4.6); Mean Corpuscular HGB Conc 32.6 g/dL (31.6-35.5); Mean Corpuscular Hemoglobin 26.4 pg (28.0-33.3); Mean Corpuscular Volume 81.1 fL (83.0-100.0); Mean Platelet Volume 10.4 fL (9.4-12.4); Monocytes # 0.6 K/mcL (0.0-1.3); Monocytes % 5.2 %; Neutrophils # 7.2 K/mcL (1.6-8.9); Platelet Count 308 K/mcL (140-400); Red Blood Count 5.18 M/mcL (3.82-4.97); Red Cell Distribution Width 13.4 % (11.5-14.5); Segmented Neutrophils % 66.2 %
[2016-09-22] MEDS: Metoprolol XL (24 HR) Succ 25 MG TAB.ER.24H PO SCH (08:35)
[2016-09-22] MEDS: Aspirin 81 MG TAB.CHEW PO SCH (08:35)
[2016-09-22] MEDS ORDERED: Nicotine 21 MG PATCH.TD24 TD SCH (09:00)
--- NOTE | 2016-09-22 09:21 | Cardiology Progress Note ---
Date of Encounter: 09/22/16 Time of Encounter: 09:00 Assessment and Plan (1) NSTEMI (non-ST elevated myocardial infarction) Current Visit: Yes Status: Acute Troponin 0.41, 3.43, 5.46. Non-specific ECG changes. Presented with 3-4 day history of intermittent chest discomfort. [facility] 2015 s/p successful PCI of pLAD, EF preserved; reports quit taking all cardiac meds 2015. TTE: pending--will f/u with results as outpatient. [facility] 09/21/16: s/p successful PTCA/BMS to mLCx; patent pLAD stent. No further chest pain or discomfort since PCI. Cardiac rehab phase 1. Post PCI discharge instructions discussed at length including emphasis on medication compliance and uninterrupted DAPT (asa + plavix) for at least 3 months. Verbalized understanding. Continue betablocker, statin, asa, plavix and prn NTG tabs. Pt. request nicotine patch upon discharge. Will coordinate appt in the outpatient setting. Cardiology will sign-off, please call with questions. (2) CAD (coronary artery disease) Current Visit: Yes Status: Chronic Hx of CAD s/p PCI with BILL 2015. Has been noncompliant with f/u and medications. Plan as above. Emphasized importance of medication compliance including uninterrupted DAPT following PCI. Qualifiers: Coronary Disease-Associated Artery/Lesion type: enterprise artery [place] vs. transplanted heart: enterprise heart Associated angina: with unstable angina Qualified Code(s): I25.110 - Atherosclerotic heart disease of enterprise coronary artery with unstable angina pectoris (3) Tobacco abuse Current Visit: Yes Status: Chronic Smoking cessation counseling provided, request Nicotine patches upon discharge. Discussion w patient/family: The assessment and plan as outlined above was discussed with the patient and/or family members who expressed understanding and agreement. All questions were answered. Thank you for involving us in the care of your patient. Please call with any questions. The patient was discussed and reviewed with Dr. Moran; Cardiology will sign-off , please call with questions. Subjective Principal diagnosis: NSTEMI Interval history: Seen and examined. Denies recurrent chest pain or discomfort since PCI--has been up and ambulating in room without symptoms. Post PCI instructions discussed at length. Objective Vital Signs, Last 4 Hours Temp Pulse BP 09/22/16 06:55 98 F 71 133/93 General: Conversant HEENT: Atraumatic, Normocephaly, Mucus Membranes Moist Neck: No JVD, Normal carotid pulses Cardiac: Reg Rate and Rhythm, Normal S1 and S2, No Murmur Lungs: Normal Breath Sounds, No Wheeze, Rales, Rhonchi Neuro: Alert and responsive, No focal deficits noted Abdomen: Soft, Non-Tender Skin: No rashes noted on visualized skin Musculoskeletal: No Chest Wall Tenderness Extremities: No Clubbing, No Cyanosis, No Edema, Normal Pulses Other: right radial cath site: +2 radial pulses, brisk cap refill, no hematoma or oozing at site. Results 09/22/16 08:00 09/22/16 08:00 Lab Results 09/22/16 09/22/16 08:00 08:00 WBC 10.9 Hgb 13.7 Hct 42.0 Plt Count 308 Sodium 134 L Potassium 4.0 Chloride 106 Carbon Dioxide 24 BUN 8 Creatinine 0.69 Glucose 176 H Calcium 8.8 Magnesium 1.8 Active Medications Acetaminophen (Tylenol) 650 mg PO Q6HR PRN PRN Reason: Mild Pain (1-3) Stop: 03/22/17 20:34 Hydrocodone Bitart/Acetaminophen ([place] 5-325 Mg) 1 tab PO Q4HR PRN PRN Reason: Moderate Pain Stop: 03/23/17 14:41 Last Admin: 09/21/16 16:45 Dose: 1 tab Aspirin (Aspirin) 81 mg PO DAILY [facility] Stop: 03/23/17 09:01 Last Admin: 09/22/16 08:35 Dose: 81 mg Atorvastatin Calcium (Lipitor) 80 mg PO HS [facility] Stop: 03/22/17 21:01 Last Admin: 09/21/16 19:45 Dose: 80 mg Clopidogrel Bisulfate (Plavix) 75 mg PO DAILY [facility] Stop: 03/24/17 09:01 Last Admin: 09/22/16 08:35 Dose: 75 mg Dextrose/Water (Dextrose 50% (Syg)) 25 ml IVP AD PRN PRN Reason: Hypoglycemia Stop: 03/22/17 20:58 Docusate Sodium (Colace) 100 mg PO BID PRN PRN Reason: Constipation Stop: 03/22/17 20:34 Glucagon (Glucagen) 1 mg IM ONCE PRN PRN Reason: Hypoglycemia Stop: 03/22/17 20:58 Glucose (Gluctose) 15 gm PO ONCE PRN PRN Reason: Hypoglycemia Stop: 03/22/17 20:58 Glucose (Gluctose) 30 gm PO ONCE PRN PRN Reason: Hypoglycemia Stop: 03/22/17 20:58 Heparin Sodium (Porcine) (Heparin) 4,000 unit IVP Q6HR PRN PRN Reason: SEE COMMENTS Stop: 03/22/17 18:01 Last Admin: 09/21/16 02:09 Dose: 4,000 unit Heparin Sodium (Porcine) (Heparin) 2,000 unit IVP Q6H PRN PRN Reason: SEE COMMENTS Stop: 03/22/17 18:01 Last Admin: 09/21/16 09:41 Dose: 2,000 unit Heparin Sodium/Dextrose (Heparin 25,000 Unit/500 Ml D5w) 25,000 unit in 500 mls @ 20.04 mls/hr IVC .Q24H TATE; 12 UNIT/KG/HR PRN Reason: Protocol Stop: 03/22/17 18:01 Last Titration: 09/21/16 09:36 Dose: 17.06 unit/kg/hr, 28.5 mls/hr Nitroglycerin (Nitroglycerin) 25 mg in 250 mls @ 3 mls/hr IVC .Q24H TATE; 5 MCG/ MIN PRN Reason: Protocol Stop: 03/22/17 18:16 Last Admin: 09/20/16 18:32 Dose: 5 mcg/min, 3 mls/hr Sodium Chloride (0.9 % Sodium Chloride) 1,000 mls @ 100 mls/hr IVC .Q10H TATE Stop: 03/22/17 20:46 Last Admin: 09/21/16 10:17 Dose: 100 mls/hr Dextrose (Dextrose 5%) 1,000 mls @ 100 mls/hr IVC .Q10H PRN PRN Reason: HYPOGLYCEMIA Stop: 03/22/17 20:58 Insulin Human Lispro (Humalog) 0 units SQ HS TATE PRN Reason: Protocol Stop: 03/22/17 21:01 Last Admin: 09/21/16 19:46 Dose: 3 units Insulin Human Lispro (Humalog) 0 units SQ TIDAC TATE PRN Reason: Protocol Stop: 03/23/17 07:31 Last Admin: 09/21/16 16:20 Dose: 2 units Metoprolol Succinate (Toprol Xl) 25 mg PO DAILY TATE Stop: 03/22/17 21:01 Last Admin: 09/22/16 08:35 Dose: 25 mg Morphine Sulfate (Morphine Sulfate) 2 mg IVP Q4HR PRN PRN Reason: Moderate Pain Stop: 03/22/17 21:02 Last Admin: 09/21/16 19:45 Dose: 2 mg Naloxone HCl (Narcan) 0.4 mg IVP Q2MIN PRN PRN Reason: Opioid Reversal Stop: 03/22/17 20:34 Nitroglycerin (Nitroglycerin) 0.4 mg SL Q5MIN PRN PRN Reason: Chest Pain Stop: 03/22/17 17:22 Last Admin: 09/20/16 17:49 Dose: 0.4 mg Ondansetron HCl (Zofran Odt) 4 mg SL Q8HR PRN PRN Reason: Nausea And Vomiting Stop: 03/22/17 20:34 Ondansetron HCl (Zofran) 4 mg IVP Q6HR PRN; Protocol PRN Reason: Nausea And Vomiting Stop: 03/23/17 14:41 - Imaging and Cardiology Stress Test: report reviewed Echo: pending Other Results: 12 hour tele: avg HR=63 SR. No significant event noted. - EKG Interpretation EKG results cardiology: personally reviewed - VTE Reasons for not Prescribing Prophylaxis: Not indicated-Anticoagulated or INR therapeutic Consult Discharge Plan - Plan Referrals: Shayla Perez MD [Primary Care Provider] -
[2016-09-22] MEDS: Insulin LISPRO 300 UNITS/3 ML VIAL SQ SCH ×2 (10:42→12:47)
--- NOTE | 2016-09-22 11:47 | Discharge Summary ---
Date of Encounter: 09/22/16 Time of Encounter: 11:42 - Discharge Diagnosis (1) NSTEMI (non-ST elevated myocardial infarction) Priority: Primary Status: Acute (2) Elevated troponin Priority: Primary Status: Acute (3) Noncompliance Priority: Secondary Status: Chronic (4) CAD (coronary artery disease) Priority: Secondary Status: Chronic Qualifiers: Coronary Disease-Associated Artery/Lesion type: [place] artery [place] vs. transplanted heart: [place] heart Associated angina: with unstable angina Qualified Code(s): I25.110 - Atherosclerotic heart disease of [place] coronary artery with unstable angina pectoris (5) Diabetes Priority: Secondary Status: Chronic Qualifiers: Diabetes mellitus type: type 2 Diabetes mellitus complication status: with unspecified complications Diabetes mellitus nursing home insulin use: unspecified nursing home insulin use status Qualified Code(s): E11.8 - Type 2 diabetes mellitus with unspecified complications (6) HTN (hypertension) Priority: Secondary Status: Chronic Qualifiers: Hypertension type: essential hypertension Qualified Code(s): I10 - Essential (primary) hypertension (7) Hyperlipidemia Priority: Secondary Status: Chronic Qualifiers: Hyperlipidemia type: unspecified Qualified Code(s): E78.5 - Hyperlipidemia , unspecified (8) Tobacco abuse Priority: Secondary Status: Chronic - Discharge Medications Prescriptions: Nitroglycerin 0.4 mg SL Q5MIN PRN #10 PRN Reason: Chest Pain Aspirin 81 mg PO DAILY #30 Atorvastatin [Lipitor] 80 mg PO HS #30 tab Clopidogrel [Plavix] 75 mg PO DAILY #30 tab Metformin HCl [Glucophage] 1,000 mg PO Q12H #60 tablet Metoprolol XL (24 HR) Succ [Toprol Xl] 25 mg PO DAILY #30 Home Medications: Aspirin 81 mg PO DAILY #30 09/22/16 [Rx] Atorvastatin [Lipitor] 80 mg PO HS #30 tab 09/22/16 [Rx] Clopidogrel [Plavix] 75 mg PO DAILY #30 tab 09/22/16 [Rx] Metformin HCl [Glucophage] 1,000 mg PO Q12H #60 tablet 09/22/16 [Rx] Metoprolol XL (24 HR) Succ [Toprol Xl] 25 mg PO DAILY #30 09/22/16 [Rx] Nitroglycerin 0.4 mg SL Q5MIN PRN #10 09/22/16 [Rx] Allergies/Adverse Reactions: Allergies No Known Allergies Allergy (Verified 05/04/15 14:18) Procedures/tests Complete & Pending: Procedures Performed prior 72 hours Category Date Time Status CL Cardiac Catheterization [CL] Routine 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 09/21/16 10:05 Ordered ECG 12 lead ECG [ECG] Routine Y 09/21/16 02:18 Completed Date of admission: 09/20/16 18:50 Primary care physician: Shayla Perze Consults: 09/21/16 09:57 Consult to Cardiac Rehabilitation-Phase1 [CONS] Routine Comment: Reason for Consult: NSTEMI Call Completed: No Discharging clinician: Laura Olea Anticipated date of discharge: 09/22/16 - Patient Status Disposition: Home, Self-Care Condition: Good Functional capacity at discharge: independent ambulation Overall status at discharge: patient is back to baseline - Discharge Instructions Follow Up With: Shayla Perez MD [Primary Care Provider] - Additional Instructions: Please follow up with your primary care physician within five days after your discharge from the hospital. Please follow up with cardiology within one week after your discharge from the hospital. Please closely monitor your blood glucose at home. You glucometer supplies have been called in to your preferred pharmacy. Please keep a log of your daily fingerstick readings (fasting, premeal, two hours after a meal, and bedtime). Take these readings with you to your primary care physician's appointment. Aspirin, Plavix, Lipitor, Metformin, Metoprolol have been added to your home medications. Please take these medications as prescribed. Please resume your other home medications prescribed by your primary care physician. Please consult your primary care physician about nicotine replacement therapy once you are completely ready to abstain from smoking. If chest pain occurs, please take the sublingual Nitroglycerin and immediately seek medical help. - Diet and Activity Activity: increase activity as tolerated Diet: diabetic diet, low salt diet Hospital course: Ms. Brady is a 31 year old female with PMH Of CAD s/p BILL x 1 in proximal LAD , DM, HTN, HLD, tobacco abuse, noncompliance who was admitted for NSTEMI. Patient was seen by cardiology and underwent LHC. She underwent PTCA with BILL to [facility] and was noted to have patent pLAD. She was started on ASA, Plavix, BB, statin. Patient was heavily counseled about the need to be compliant with her home medications. She also reported of not taking her Metformin prior to her hospitalization. At this time she is hemodynamically stable and cleared from cardiology stand point for discharge. Patient verbalizes understanding of her diagnosis and is willing to be compliant with her home medications. She will be discharged to home with follow up with PCP, and cardiology. - Time Spent with Patient Total time spent providing and/or coordinating discharge services: Greater than 30 minutes - Constitutional Vitals: Temp Pulse Resp BP Pulse Ox 98 F 71 16 133/93 98 09/22/16 06:55 09/22/16 06:55 09/21/16 21:24 09/22/16 06:55 09/21/16 21:24 General appearance: Present: A&O X 3, no acute distress, answers questions appropriately - Head Head exam: Present: atraumatic, normocephalic - Eye Eye exam: Present: conjuntiva pink, sclera anicteric - Respiratory Respiratory exam: Present: CTAB. Absent: respiratory distress, wheezes - Cardiovascular Cardiovascular exam: Present: RRR, +S1, +S2. Absent: diastolic murmur, gallop, rubs, systolic murmur - GI/Abdominal GI/Abdominal exam: Present: normal bowel sounds, soft, no peritoneal signs. Absent: distended, tenderness - Extremities Exam Extremities exam: Present: warm, radial pulses palpable and symetrical. Absent : calf tenderness, pedal edema - Neurological Exam Neurological exam: Present: alert, oriented X3 - Psychiatric Psychiatric exam: Present: normal affect, normal mood - VTE Reasons for not Prescribing Prophylaxis: Not indicated-Anticoagulated or INR therapeutic
[2016-09-22 12:17] VITALS: BP 147/96
--- NOTE | 2016-09-23 08:46 | Invasive Diagnostic Lab ---
Name: Dayana Brady Date of Study: 09/21/2016 Date: 1985 Ht: 172.7 cm /68.1 in Medical Record#: [id number] Age: 31 Wt: 83.6 kg / 184.09 lb Account/Order#: [id number] Gender: Female BSA: 1.97 Order #: [id number] Fluoro Dose: 454 mGy BMI: 27.9 Procedure Physician: Domo Hughes MD, [facility] Referring MD: Referring MD: Procedures Performed: LEFT HEART CATH Stent w/ PTCA Single Major Vessel BMS Indications: Non-Stemi Impressions: There is severe one vessel coronary artery disease. The left ventricle is normal and has normal contractility EF 65% Patient had successful PTCA/Bare Metal Stent placement in the mid Circ. Stent placed from a prior procedure in the Proximal LAD is patent. History of noncompliance Recommendations: Optimal medical therapy of patient's disease. Aggressive risk factor modification. History/Risk Factors: Diabetes Hypertension Current/Recent Smoker Prior [place] Previous PCI Procedure Access obtained in the right Radial artery by percutaneous puncture Patient had successful PTCA/Bare Metal Stent placement in the mid Circ. Complications: None Contrast: Isovue 84ml Closure Device: Mechanical Compression Hemodynamics: Pressures Site Systolic/ A Wave Diastolic/ V Wave End Diastolic/ Mean HR AO 124 95 110 75 LV 137 9 23 74 LV 138 10 31 72 AO 126 83 104 75 LV Ventriculography Ejection Method: LV Gram Ejection Fraction: 65% Wall Motion: DAY Anterobasal Normal Anterolateral Normal Apical: Normal Inferoapical Normal Inferobasal Normal Coronary Dominance: right Lesion Findings/Interventions * Left Main Coronary Artery The LMCA is angiographically free of disease. * Left Anterior Descending There is a 60% stenosis in the Mid LAD. Patent proximal stent. * Circumflex There is a 16 mm long, 90% stenosis in the Mid Circumflex. The lesion has a LIZZIE flow of 3. An intervention was performed on the Mid Circumflex with a final stenosis of 0%. There were no lesion complications. The final LIZZIE flow was 3. * Right Coronary Artery There is a 50% stenosis in the Proximal RCA. There is a 50% stenosis in the Distal RCA. There is a bifurcation stenosis (Cooper 1,1,1) in the distal RCA/PLB/PDA 70-90%. PDA and PLB are small vessels. Interventional Device(s) Vessel Segment Type Name Diameter (mm) Length (mm) Mid Circumflex Balloon Emerge Monorail 2 15 Mid Circumflex bare metal stent Rebel [employer] 2.25 16 Mid Circumflex balloon NC Emerge 3 6 Updated by Katarzyna Mitchell RT(R) on 09/21/2016 2:48:44 PM Domo Hughes MD, FACC electronically signed on 09/23/2016 8:41:40 AM with status of Final
== END 2016-09-22 15:30 | disposition home or self-care (01) | DRG 174 ==
LOC: EMEROO 16:38 → SUATTDRO 18:50 → 2NENU 18:50
PROVIDERS: ADMIT Nurse Practitioner Acute Care; ATTEND Internal Medicine

== ENCOUNTER 2017-04-29 07:20 | Inpatient (IN) ==
--- NOTE | 2017-04-29 07:39 | Emergency Department Note ---
Disposition Clinical Impression: NSTEMI (non-ST elevated myocardial infarction) Disposition: Admitted As Inpatient Condition: Fair Referrals: Shayla Perez MD [Primary Care Provider] - Forms: ED Satisfaction Letter General Adult HPI - General Chief complaint: ED Chest Pain Stated complaint: chest pain Time Seen by Provider: 04/29/17 07:31 Source: patient Limitations: no limitations - History of Present Illness Pain Scale: 10 - Related Data Home Medications Medication Instructions Recorded Confirmed Fluticasone Propionate Nasal 1 spr NS DAILY 04/29/17 04/29/17 [Flonase] Glimepiride [Amaryl] 4 mg PO DAILY 04/29/17 04/29/17 Ondansetron HCl [Zofran] 4 mg PO DAILY 04/29/17 04/29/17 Previous Rx's Medication Instructions Recorded Aspirin 81 mg PO DAILY #30 09/22/16 Atorvastatin [Lipitor] 80 mg PO HS #30 tab 09/22/16 Clopidogrel [Plavix] 75 mg PO DAILY #30 tab 09/22/16 Metformin HCl [Glucophage] 1,000 mg PO Q12H #60 tablet 09/22/16 Metoprolol XL (24 HR) Succ [Toprol 25 mg PO DAILY #30 09/22/16 Xl] Nitroglycerin 0.4 mg SL Q5MIN PRN #10 09/22/16 Allergies Allergy/AdvReac Type Severity Reaction Status Date / Time No Known Allergies Allergy Verified 05/04/15 14:18 Past Medical History - Past Medical History Medical history: Reports: coronary artery disease, diabetes, hyperlipidemia, hypertension, myocardial infarction Surgical history: Reports: angioplasty/stent Psychiatric history: Reports: no psych history 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 - Social History Smoking Status: Current every day smoker Smokeless Tobacco Status: No Alcohol use: Reports: occasionally Drug use: Reports: marijuana Physical Exam - General Limitations: no limitations General appearance: alert, in no apparent distress Course Vital Signs Temperature 97.5 F L 04/29/17 07:20 Pulse Rate 83 04/29/17 07:20 Respiratory Rate 16 04/29/17 07:20 Blood Pressure 178/124 04/29/17 07:20 O2 Sat by Pulse Oximetry 98 04/29/17 07:20 Temperature 97.5 F L 04/29/17 07:20 Pulse Rate 68 04/29/17 09:45 Respiratory Rate 16 04/29/17 09:45 Blood Pressure 124/69 04/29/17 09:45 O2 Sat by Pulse Oximetry 97 04/29/17 09:45 Oxygen Delivery Oxygen Delivery Nasal Cannula Medical Decision Making - Lab Data Result diagrams: 04/29/17 07:51 04/29/17 07:51 Lab Results 04/29/17 04/29/17 04/29/17 Range/Units 07:51 07:51 07:51 WBC 18.4 H (4.3-11.1) K/mcL RBC 5.59 H (3.82-4.97) M/mcL Hgb 14.9 (11.5-15.4) g/dL Hct 46.1 H (35.3-44.9) % MCV 82.5 L (83.0-100.0) fL MCH 26.7 L (28.0-33.3) pg MCHC 32.3 (31.6-35.5) g/dL RDW 13.5 (11.5-14.5) % Plt Count 534 H (140-400) K/mcL MPV 9.7 (9.4-12.4) fL Immature Gran % 0.4 (0-4) % Seg Neutrophils % 83.4 % Lymphocytes % 13.2 % Monocytes % 2.1 % Eosinophils % 0.2 % Basophils % 0.7 % Neutrophils # 15.3 H (1.6-8.9) K/mcL Lymphocytes # 2.4 (0.6-4.6) K/mcL Monocytes # 0.4 (0.0-1.3) K/mcL Eosinophils # 0.0 (0.0-0.6) K/mcL Basophils # 0.1 (0.0-0.2) K/mcL PT 11.1 (9.4-12.1) Seconds INR 1.0 APTT 33.4 (26.0-36.0) Seconds Sodium 136 (136-145) mEq/L Potassium 4.6 (3.5-5.1) mEq/L Chloride 102 (98-107) mEq/L Carbon Dioxide 23 (23-29) mEq/L BUN 11 (6-20) mg/dL Creatinine 0.71 (0.60-1.20) mg/dL Est GFR ( Amer) > 60 (> 60) Est GFR (Non-Af Amer) > 60 (> 60) BUN/Creatinine Ratio 15 (6-26) Glucose 308 H (70-105) mg/dL Calculated Osmolality 293 (280-300) Calcium 9.6 (8.6-10.3) mg/dL Troponin I (< 0.04) ng/mL 04/29/17 Range/Units 07:51 WBC (4.3-11.1) K/mcL RBC (3.82-4.97) M/mcL Hgb (11.5-15.4) g/dL Hct (35.3-44.9) % MCV (83.0-100.0) fL MCH (28.0-33.3) pg MCHC (31.6-35.5) g/dL RDW (11.5-14.5) % Plt Count (140-400) K/mcL MPV (9.4-12.4) fL Immature Gran % (0-4) % Seg Neutrophils % % Lymphocytes % % Monocytes % % Eosinophils % % Basophils % % Neutrophils # (1.6-8.9) K/mcL Lymphocytes # (0.6-4.6) K/mcL Monocytes # (0.0-1.3) K/mcL Eosinophils # (0.0-0.6) K/mcL Basophils # (0.0-0.2) K/mcL PT (9.4-12.1) Seconds INR APTT (26.0-36.0) Seconds Sodium (136-145) mEq/L Potassium (3.5-5.1) mEq/L Chloride (98-107) mEq/L Carbon Dioxide (23-29) mEq/L BUN (6-20) mg/dL Creatinine (0.60-1.20) mg/dL Est GFR ( Amer) (> 60) Est GFR (Non-Af Amer) (> 60) BUN/Creatinine Ratio (6-26) Glucose (70-105) mg/dL Calculated Osmolality (280-300) Calcium (8.6-10.3) mg/dL Troponin I 0.08 H* (< 0.04) ng/mL Critical Care Time Critical Care Time: Yes Total Critical Care Time: 30 Attestation: The high probability of a clinically significant, sudden or life threatening deterioration of the [] system(s) required my full and direct attention, intervention and personal management. The aggregate critical care time was [] minutes. This time is in addition to time spent performing reported procedures but includes the following: [] Data Review and interpretation [] Patient assessment and monitoring of vital signs [] Documentation [] Medication orders and management Attestation Statement - Attestation Attestation: I examined this patient and my medical decision-making was reviewed with the Resident Physician. I agree with the documented findings, disposition and treatment plan as described except to the extent set forth below. [id number] time provided in conjunction with the resident physician Dr. Santiago Patient complains of chest discomfort. She is diaphoretic and shaky appearing on exam. ECG reviewed by me showing ST segment depression in the inferior and lateral leads which is relatively new compared to a previous study dated . 08:45: I spoke with Dr. Barclay, cardiology, at 08:35. She states she will send someone from her service to the emergency department to evaluate the patient 10:07: Dr. Barclay recommends an influenza swab and admission to medicine service
[2017-04-29] MEDS ORDERED: Aspirin 81 MG TAB.CHEW PO STA (07:45)
[2017-04-29] MEDS ORDERED: Nitroglycerin 0.4 MG TAB.SUBL SL ONE (07:45)
--- NOTE | 2017-04-29 07:46 | Emergency Department Note ---
Disposition Clinical Impression: NSTEMI (non-ST elevated myocardial infarction) Disposition: Admitted As Inpatient Condition: Fair Referrals: Shayla Perez MD [Primary Care Provider] - Time of Disposition: 09:17 General Adult HPI - General Chief complaint: ED Chest Pain Stated complaint: chest pain Time Seen by Provider: 04/29/17 07:31 Source: patient Limitations: no limitations Nursing Notes Reviewed: Yes Vital Signs Reviewed: Yes - History of Present Illness HPI Narrative: 32-year-old female history of CAD status post stents 2, CAD, diabetes presents with chest pain at rest, substernal CP with nausea, shortness of breath and diaphoresis, this happened this morning. She did have persistent 8 out of 10 chest pain. Her midchest he states feels like previous episodes of angina. Patient denies hematochezia, melena. Onset (ago): minute(s) Location: head Pain Severity: severe Pain Scale: 10 Quality: aching Consistency: intermittent Improves with: nothing Worsens with: nothing Associated symptoms: Reports: nausea/vomiting. Denies: confusion, chest pain, cough, diaphoresis, headaches, shortness of breath, syncope, weakness - Related Data Home Medications Medication Instructions Recorded Confirmed Fluticasone Propionate Nasal 1 spr NS DAILY 04/29/17 04/29/17 [Flonase] Glimepiride [Amaryl] 4 mg PO DAILY 04/29/17 04/29/17 Ondansetron HCl [Zofran] 4 mg PO DAILY 04/29/17 04/29/17 Previous Rx's Medication Instructions Recorded Aspirin 81 mg PO DAILY #30 09/22/16 Atorvastatin [Lipitor] 80 mg PO HS #30 tab 09/22/16 Clopidogrel [Plavix] 75 mg PO DAILY #30 tab 09/22/16 Metformin HCl [Glucophage] 1,000 mg PO Q12H #60 tablet 09/22/16 Metoprolol XL (24 HR) Succ [Toprol 25 mg PO DAILY #30 09/22/16 Xl] Nitroglycerin 0.4 mg SL Q5MIN PRN #10 09/22/16 Allergies Allergy/AdvReac Type Severity Reaction Status Date / Time No Known Allergies Allergy Verified 05/04/15 14:18 All systems ED: reviewed and negative except as stated. Review of Systems: As Per HPI Constitutional: Denies: fever, chills Eyes: Denies: eye pain ENT ED: Denies: ear pain Cardiovascular: Reports: as per HPI, chest pain, dyspnea on exertion Respiratory: Denies: cough, dyspnea Gastrointestinal: Reports: as per HPI, abdominal pain Genitourinary: Denies: urgency Musculoskeletal: Denies: back pain Integumentary: Denies: rash Neurological: Denies: headache Past Medical History - Past Medical History Attestation: Yes The following information was validated with the patient. 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 - Social History Smoking Status: Current every day smoker Smokeless Tobacco Status: No Alcohol use: Reports: occasionally Drug use: Reports: marijuana Physical Exam Constitutional: Uncomfortable young female is clutching her chest, she is in mildly uncomfortable with stable vital signs Neck: normal inspection, neck is supple, no JVD Resp: normal chest inspection, CTA bilaterally, no resp distress, no wheezes/ rales/rhonchi CV: Regular rate and rhythm no murmurs/gallops/rubs, S1 and S2 heard Extremity: +2 bilateral radial and posterial tibial pulses, no pedal edema GI: normal inspection, Soft, NTND, no peritoneal signs, no palpable abdominal aortic aneurysm Back: normal inspection, no tenderness to palpation Neuro: A&O3, no gross motor or sensory deficits bilaterally MSK: normal inspection, bilateral UE and LE with normal ROM Skin: No rashes, skin warm, dry, intact - General Limitations: no limitations General appearance: alert, in no apparent distress Course Course Narrative: 32-year-old female with history of CAD status post stents 2, PTCA to the LAD, in 2016, the patient is having severe chest pain, given her signs and symptoms, we will start nitroglycerin trial, aspirin basic lab work CBC BMP troponin chest x-ray. - Reevaluation(s) Reevaluation #1: Patient with elevated troponin, EKG changes show ST depressions in V5 V6, T- wave inversions in lead AVL Time: 09:17 Reevaluation #2: Patient will be admitted to the hospital still concern for an STEMI though she does have abdominal pain with no Faulkner sign he added hepatic panel lipase, and CT scan noncontrast of abdomen, patient's mother amply stable and nitroglycerin drip as well as heparin Time: 10:30 - Consultations Consultation #1: Cardiology was paged, there and evaluate the patient for an NSTEMI. With active chest pain, nitro drip started is improved her pain, current pressure is 116 systolic Time: 09:17 Vital Signs Temperature 97.5 F L 04/29/17 07:20 Pulse Rate 83 04/29/17 07:20 Respiratory Rate 16 04/29/17 07:20 Blood Pressure 178/124 04/29/17 07:20 O2 Sat by Pulse Oximetry 98 04/29/17 07:20 Temperature 97.5 F L 04/29/17 07:20 Pulse Rate 82 04/29/17 10:15 Respiratory Rate 16 04/29/17 10:15 Blood Pressure 120/85 04/29/17 10:15 O2 Sat by Pulse Oximetry 98 04/29/17 10:15 Oxygen Delivery Oxygen Delivery Nasal Cannula Medical Decision Making - Medical Records Medical records reviewed: Yes I reviewed the patient's medical records. - Lab Data Lab results reviewed: Yes I reviewed the patient's lab results. Result diagrams: 04/29/17 07:51 04/29/17 07:51 Lab Results 04/29/17 04/29/17 04/29/17 Range/Units 07:51 07:51 07:51 WBC 18.4 H (4.3-11.1) K/mcL RBC 5.59 H (3.82-4.97) M/mcL Hgb 14.9 (11.5-15.4) g/dL Hct 46.1 H (35.3-44.9) % MCV 82.5 L (83.0-100.0) fL MCH 26.7 L (28.0-33.3) pg MCHC 32.3 (31.6-35.5) g/dL RDW 13.5 (11.5-14.5) % Plt Count 534 H (140-400) K/mcL MPV 9.7 (9.4-12.4) fL Immature Gran % 0.4 (0-4) % Seg Neutrophils % 83.4 % Lymphocytes % 13.2 % Monocytes % 2.1 % Eosinophils % 0.2 % Basophils % 0.7 % Neutrophils # 15.3 H (1.6-8.9) K/mcL Lymphocytes # 2.4 (0.6-4.6) K/mcL Monocytes # 0.4 (0.0-1.3) K/mcL Eosinophils # 0.0 (0.0-0.6) K/mcL Basophils # 0.1 (0.0-0.2) K/mcL PT 11.1 (9.4-12.1) Seconds INR 1.0 APTT 33.4 (26.0-36.0) Seconds Sodium 136 (136-145) mEq/L Potassium 4.6 (3.5-5.1) mEq/L Chloride 102 (98-107) mEq/L Carbon Dioxide 23 (23-29) mEq/L BUN 11 (6-20) mg/dL Creatinine 0.71 (0.60-1.20) mg/dL Est GFR ( Amer) > 60 (> 60) Est GFR (Non-Af Amer) > 60 (> 60) BUN/Creatinine Ratio 15 (6-26) Glucose 308 H (70-105) mg/dL Calculated Osmolality 293 (280-300) Calcium 9.6 (8.6-10.3) mg/dL Troponin I (< 0.04) ng/mL 04/29/17 Range/Units 07:51 WBC (4.3-11.1) K/mcL RBC (3.82-4.97) M/mcL Hgb (11.5-15.4) g/dL Hct (35.3-44.9) % MCV (83.0-100.0) fL MCH (28.0-33.3) pg MCHC (31.6-35.5) g/dL RDW (11.5-14.5) % Plt Count (140-400) K/mcL MPV (9.4-12.4) fL Immature Gran % (0-4) % Seg Neutrophils % % Lymphocytes % % Monocytes % % Eosinophils % % Basophils % % Neutrophils # (1.6-8.9) K/mcL Lymphocytes # (0.6-4.6) K/mcL Monocytes # (0.0-1.3) K/mcL Eosinophils # (0.0-0.6) K/mcL Basophils # (0.0-0.2) K/mcL PT (9.4-12.1) Seconds INR APTT (26.0-36.0) Seconds Sodium (136-145) mEq/L Potassium (3.5-5.1) mEq/L Chloride (98-107) mEq/L Carbon Dioxide (23-29) mEq/L BUN (6-20) mg/dL Creatinine (0.60-1.20) mg/dL Est GFR ( Amer) (> 60) Est GFR (Non-Af Amer) (> 60) BUN/Creatinine Ratio (6-26) Glucose (70-105) mg/dL Calculated Osmolality (280-300) Calcium (8.6-10.3) mg/dL Troponin I 0.08 H* (< 0.04) ng/mL - Radiology Data Radiology results reviewed: Yes I reviewed the patient's radiology results. Chest X-Ray 04/29/17 07:38 IMPRESSION: 1. No acute radiographic abnormality to account for patient's chest pain. D/ / Alan Ortega MD / Alan Ortega MD Interpreting Provider: Alan Ortega MD - EKG Data EKG #1 EKG attestation: Yes I reviewed and interpreted this EKG. EKG shows normal: sinus rhythm Rate: normal Rhythm: NSR ST segment depression in: v5, v6 T wave inversions noted in: III Interpretation: nonspecific ST-T wave changes, other (Repeat EKG shows continued depressions in V5 and V6. 8:41) - Core Measures AMI Core Measures Followed: Yes
[2017-04-29 07:58] LABS: Basophils # 0.1 K/mcL (0.0-0.2); Basophils % 0.7 %; Eosinophils % 0.2 %; Hematocrit 46.1 % (35.3-44.9); Hemoglobin 14.9 g/dL (11.5-15.4); Immature Granulocytes % 0.4 % (0-4); Lymphocytes # 2.4 K/mcL (0.6-4.6); Lymphocytes % 13.2 %; Mean Corpuscular HGB Conc 32.3 g/dL (31.6-35.5); Mean Corpuscular Hemoglobin 26.7 pg (28.0-33.3); Mean Corpuscular Volume 82.5 fL (83.0-100.0); Mean Platelet Volume 9.7 fL (9.4-12.4); Monocytes # 0.4 K/mcL (0.0-1.3); Monocytes % 2.1 %; Neutrophils # 15.3 K/mcL (1.6-8.9); Platelet Count 534 K/mcL (140-400); Red Blood Count 5.59 M/mcL (3.82-4.97); Red Cell Distribution Width 13.5 % (11.5-14.5); Segmented Neutrophils % 83.4 %
[2017-04-29 08:03] LABS: Prothrombin Time 11.1 Seconds (9.4-12.1)
[2017-04-29 08:05] LABS: Activated Partial Thrombo Time 33.4 Seconds (26.0-36.0)
[2017-04-29] MEDS ORDERED: *HR* FentaNYL (PF) 100 MCG/2 ML VIAL IVP ONE (08:18)
[2017-04-29 08:22] LABS: BUN/Creatinine Ratio 15 (6-26); Blood Urea Nitrogen 11 mg/dL (6-20); Calcium 9.6 mg/dL (8.6-10.3); Carbon Dioxide 23 mEq/L (23-29); Chloride 102 mEq/L (98-107); Glucose 308 mg/dL (70-105); Osmolality,Calculated 293 (280-300); Potassium 4.6 mEq/L (3.5-5.1); Sodium 136 mEq/L (136-145); eGFR For African Americans > 60 (> 60); eGFR For Non-African Americans > 60 (> 60)
[2017-04-29] MEDS ORDERED: *HR* Promethazine 25 MG/ML VIAL IVP ONE (08:24)
[2017-04-29] MEDS ORDERED: *HR* Heparin 5,000 UNIT/ML VIAL IVP PRN ×2 (08:28)
[2017-04-29] MEDS ORDERED: *HR* Heparin 5,000 UNIT/ML VIAL IVP ONE (08:28)
[2017-04-29] MEDS ORDERED: Nitroglycerin 25 MG/250 ML INFUS..BTL IVC SCH (08:30)
[2017-04-29] MEDS ORDERED: Heparin 25,000 UNIT/500 ML D5W 25,000 UNIT/500 ML BAG IVC SCH (08:30)
[2017-04-29 10:59] LABS: Alanine Aminotransferase 12 Units/L (7-52); Albumin 4.3 g/dL (3.5-5.7); Albumin/Globulin Ratio 1.3 (1.1-2.2); Alkaline Phosphatase 92 Units/L (34-104); Aspartate Amino Transferase 11 Units/L (13-39); Bilirubin,Direct 0.1 mg/dL (0.0-0.2); Bilirubin,Indirect 0.4 mg/dL (0.0-1.2); Bilirubin,Total 0.5 mg/dL (0.3-1.0); Globulin 3.2 g/dL (2.4-3.5); Lipase 21 Units/L (11-82); Total Protein 7.5 g/dL (6.4-8.9)
[2017-04-29] MEDS ORDERED: Ondansetron 4 MG/2 ML VIAL IVP PRN (11:18)
[2017-04-29] MEDS ORDERED: *HR* HYDROcodone/Acet 5/325 mg TABLET PO PRN (11:18)
[2017-04-29] MEDS ORDERED: Acetaminophen 325 MG TABLET PO PRN (11:18)
[2017-04-29] MEDS ORDERED: *HR* Promethazine 25 MG/ML VIAL IVP PRN (11:18)
[2017-04-29] MEDS ORDERED: Naloxone 0.4 MG/ML INJ IVP PRN (11:18)
[2017-04-29] MEDS ORDERED: Mag Hydrox/Al Hydrox/Simeth 30 ML UDC PO PRN (11:18)
--- NOTE | 2017-04-29 11:53 | Cardiology Consult Note ---
Date of Encounter: 04/29/17 Time of Encounter: 10:00 Assessment and Plan (1) Elevated troponin Current Visit: No Status: Acute Patient presents with chest pain, mild troponin elevation and ECG changes. She is ill-appearing and reports nausea, vomiting and chills over the past week. She also has a leukocytosis on labs. Clinically she appears to have an acute illness and history and labs are suggestive. Of note, she had a gallbladder US yesterday - no acute findings. However, given her history, troponin elevation and ECG changes, we discussed consideration of C. During history taking, it appears that she stops taking plavix during her menstrual cycles because of heavy menses she attributes to endometriosis. I described to the patient that after coronary stenting it is very important to remain compliant with antiplatelet therapy. I described my concern about doing any further interventions if she is not able to be compliant. I reviewed her case with the Interventionalist and [facility] films from September 2016. Recommend proceeding with diagnostic cath at this time. If findings are unchanged, would evaluate patient for infectious etiology to her symptoms. If there is a new or concerning finding, may consider evaluation by OBGYN before any further interventions. This was discussed with the patient. The R/B/A of [facility] were provided to the patient. She expressed understanding. She accepts the risks of the procedure and consents to proceed. Discussion w patient/family: The assessment and plan as outlined above was discussed with the patient and/or family members who expressed understanding and agreement. All questions were answered. Thank you for involving us in the care of your patient. Please call with any questions. History of Present Illness Consult date: 04/29/17 Requesting physician: Otoniel Mendez Consult reason: Chest Pain Chief complaint: Chest pain, nausea/vomiting, chills History of present illness: Ms. Brady is a 32 year old female presenting with chest pain, nausea, vomiting and chills. Patient states that her symptoms began this past Tuesday. She states she was cleaning out her refrigerator when she experienced subsertnal chest pain, rested and symptoms resolved. She then developed dyspepsia, nausea and vomiting associated with chills on Tuesday which has persisted throughout the week. Yesterday, while resting she experienced chest discomfort again. She describes it as a pressure, substernal without radiation. She took up to 3 SL NTG without much resolution thus presenting her to the ER. Upon admission, patient noted to have mild troponin elevation of 0.08. ECG demonstrated changes in the inferior and lateral leads when compared to ECG done in September 2016. She was started on a SL NTG gtt. She was chest pain free at the bedside. The patient's medical history is significant for CAD having undergoing LHC with PCI in 2015. She then presented in September 2016 with NSTEMI secondary to noncompliance and underwent PCI to LCx. She was recently evaluated in the office March 2017 doing well. She tells me that she has endometriosis and heavy menstrual cycles and during her periods, she does not take her plavix. She admits compliance otherwise. Past Med Surg Social Fam HX - Past Medical History Attestation: Yes The following information was validated with the patient. Medical history: coronary artery disease, diabetes, hyperlipidemia, hypertension , myocardial infarction Psychiatric history: no psych history - Past Surgical History Surgical History: angioplasty/stent - Social History Smoking Status: Current every day smoker Smokeless Tobacco Status: No Alcohol use: occasionally Drug use: marijuana - Family History Father Living Status: Mother Living Status: Still Living Medications and Allergies Aspirin 81 mg PO DAILY #30 09/22/16 [Rx] Atorvastatin [Lipitor] 80 mg PO HS #30 tab 09/22/16 [Rx] Clopidogrel [Plavix] 75 mg PO DAILY #30 tab 09/22/16 [Rx] Metformin HCl [Glucophage] 1,000 mg PO Q12H #60 tablet 09/22/16 [Rx] Metoprolol XL (24 HR) Succ [Toprol Xl] 25 mg PO DAILY #30 09/22/16 [Rx] Nitroglycerin 0.4 mg SL Q5MIN PRN #10 09/22/16 [Rx] Fluticasone Propionate Nasal [Flonase] 1 spr NS DAILY 04/29/17 [History] Glimepiride [Amaryl] 4 mg PO DAILY 04/29/17 [History] Ondansetron HCl [Zofran] 4 mg PO DAILY 04/29/17 [History] 3 Allergy/AdvReac Type Severity Reaction Status Date / Time No Known Allergies Allergy Verified 05/04/15 14:18 All Systems Review: The remainder of the systems were reviewed and are negative - Cardiovascular Cardiovascular: as per HPI Physical Examination Vital signs from ER reviewed. Hemodynamically stable, afebrile. General: Conversant, No Apparent Distress, Other (diaphoretic appearing) HEENT: Atraumatic, Other (dry mucus membranes) Neck: No JVD Cardiac: Reg Rate and Rhythm, Normal S1 and S2, No Murmur Lungs: Normal Breath Sounds Neuro: Alert and responsive, No focal deficits noted Abdomen: Soft, Non-Tender, Other (bowel sounds present) Extremities: No Edema, Normal Pulses Results 04/29/17 07:51 04/29/17 07:51 Labs reviewed - troponin mildly elevated, leukocytosis, normal renal function - Imaging and Cardiology Cardiac cath: report reviewed - EKG Interpretation EKG results cardiology: personally reviewed (ECG on admit compared to ECG from September 2016 - new ECG changes with subtle ST depressions and TWI inferior and laterally), other Consult Discharge Plan - Plan Referrals: Shayla Perez MD [Primary Care Provider] -
[2017-04-29] MEDS: Metoprolol XL (24 HR) Succ 25 MG TAB.ER.24H PO SCH (12:00)
--- NOTE | 2017-04-29 13:02 | Electrocardiograph Report ---
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
--- NOTE | 2017-04-29 13:03 | Electrocardiograph Report ---
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
--- NOTE | 2017-04-29 15:05 | Internal Med History&Physical ---
Date of Encounter: 04/29/17 Time of Encounter: 11:00 Assessment and Plan (1) NSTEMI (non-ST elevated myocardial infarction) Current visit: Yes Status: Acute Will admit the pt into Tele Reviewed EKG showed NSR, ST depressions in V5 V6, T-wave inversions in lead II, AVL She is definitely high risk for ACS / Unstable angina Even though she has atypical presentation at this time with abdominal discomfort and Nausea Her U/S of Abd - WNL CT of Abd reviewed showed diverticulosis no diverticulitis Also noticed pt taking ASA only, not taking Plavix So at this point will start her on IV Heparin gtt + IV Nitro gtt Cont ASA + Plavix + BB Card consulted Possible LHC later today or in AM Cont NPO for now until card decide about LHC time (2) Acute electrocardiogram changes Current visit: No Status: Acute (3) Chest pain Current visit: No Status: Acute Qualifiers: Chest pain type: unspecified Qualified Code(s): R07.9 - Chest pain, unspecified (4) CAD (coronary artery disease) Current visit: No Status: Chronic Counseled to be compliance with all her medications Resumed all her home medications Qualifiers: Coronary Disease-Associated Artery/Lesion type: [place] artery [place] vs. 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 Qualified Code(s): E11.8 - Type 2 diabetes mellitus with unspecified complications (6) HTN (hypertension) Current visit: No Status: Chronic resumed all home meds stable BP Qualifiers: Hypertension type: essential hypertension Qualified Code(s): I10 - Essential (primary) hypertension (7) Hyperlipidemia Current visit: No Status: Chronic on Statin check FLP in AM Qualifiers: Hyperlipidemia type: unspecified Qualified Code(s): E78.5 - Hyperlipidemia , unspecified (8) Tobacco abuse Current visit: No Status: Chronic counseled to quit on nicotine patch (9) DVT prophylaxis Current visit: Yes Status: Acute on IV Heparin Internal Medicine - H&P: HPI Chief complaint: Chest pain Admitted From: Emergency Dept Plans for Post Hospital Care: Home History of present illness: Ms. Brady is a 32 year old female known past medical history of diabetes, hyperlipidemia, hypertension and coronary artery disease with C with PCI in 2015, PCI to LCx in 09/2016 presented to ER with left side chest pain radiating to her neck and left shoulder since y/d evening which is progressively worsening. She also c/o fever with chills and nausea. Denied any SOB / ROCA. Her CP was slightly better after taking SL nitro, however she got chest pain back again. She has been having some nasuea / dyspepsia for one week, so she had U/S abd done as an out pt to r/o any gallbladder problems. Her U/S of Abd showed hepatic fatty infiltration, no gallstones / no cholecystitis noticed. In the ER now she had slightly elevated Troponin with T wave inversion and ST depression changes in inferior and lateral leads. Past Med Surg Social Fam HX - Past Medical History Medical history: coronary artery disease, diabetes, hyperlipidemia, hypertension , myocardial infarction Psychiatric history: no psych history - Past Surgical History Surgical History: angioplasty/stent - Social History Smoking Status: Current every day smoker Packs per day: 1/2 Smokeless Tobacco Status: No Alcohol use: occasionally Drug use: marijuana - Family History Father Living Status: Mother Living Status: Still Living Internal Medicine - H&P: Meds Aspirin 81 mg PO DAILY #30 09/22/16 [Rx] Atorvastatin [Lipitor] 80 mg PO HS #30 tab 09/22/16 [Rx] Clopidogrel [Plavix] 75 mg PO DAILY #30 tab 09/22/16 [Rx] Metformin HCl [Glucophage] 1,000 mg PO Q12H #60 tablet 09/22/16 [Rx] Metoprolol XL (24 HR) Succ [Toprol Xl] 25 mg PO DAILY #30 09/22/16 [Rx] Nitroglycerin 0.4 mg SL Q5MIN PRN #10 09/22/16 [Rx] Fluticasone Propionate Nasal [Flonase] 1 spr NS DAILY 04/29/17 [History] Glimepiride [Amaryl] 4 mg PO DAILY 04/29/17 [History] Ondansetron HCl [Zofran] 4 mg PO DAILY 04/29/17 [History] 3 Allergy/AdvReac Type Severity Reaction Status Date / Time No Known Allergies Allergy Verified 05/04/15 14:18 All Systems PM: A 10-system review of systems was performed and is negative for pertinent findings except as documented above in the HPI. Review of systems: All the systems are reviewed everything is benign except the systems and symptoms I mentioned in the history of present illness - Constitutional Vitals: Temp Pulse Resp BP Pulse Ox 98.4 F 68 20 117/83 95 04/29/17 11:16 04/29/17 13:25 04/29/17 13:25 04/29/17 13:25 04/29/17 13:25 General appearance: Present: A&O X 3, no acute distress, answers questions appropriately - Head Head exam: Present: atraumatic, normal inspection - Neck Neck exam general surgery: Present: supple - Respiratory Respiratory exam: Present: decreased breath sounds. Absent: rales, respiratory distress, rhonchi, wheezes - Cardiovascular Cardiovascular exam: Present: RRR, +S1, +S2. Absent: tachycardia - GI/Abdominal GI/Abdominal exam: Present: normal bowel sounds, soft, tenderness (mild discomfort lower abdomen region. Faulkner's sign negative). Absent: distended, guarding, rebound, rigid - Extremities Exam Extremities exam: Absent: cyanotic, pedal edema, tenderness - Back Exam Back exam: Absent: CVA tenderness (L), CVA tenderness (R) - Neurological Exam Neurological exam: Present: alert, oriented X3, no focal deficits - Psychiatric Psychiatric exam: Present: normal affect, normal mood - Skin Skin exam: Absent: rash Internal Med - H&P Results - Labs CBC & Chem 7: 04/29/17 07:51 04/29/17 07:51 Labs: Cardiac Enzymes 04/29/17 Range/Units 11:34 Troponin I 0.54 H* (< 0.04) ng/mL
[2017-04-29] MEDS ORDERED: D5% in Water 1,000 ML IVC PRN (15:14)
[2017-04-29] MEDS ORDERED: Dextrose Gel 15 GM/37.5 ML TUBE PO PRN ×2 (15:14)
[2017-04-29] MEDS ORDERED: *HR* Dextrose 50 % in Water (Syg) 50 ML SYRINGE IVP PRN (15:14)
[2017-04-29] MEDS: Insulin LISPRO 300 UNITS/3 ML VIAL SQ SCH (15:51)
[2017-04-29] MEDS ORDERED: ISOVUE-370 200 ML INFUS..BTL IV ONE (16:02)
[2017-04-29] MEDS ORDERED: Heparin 1,000 UNITS/500 mL 500 ML ONE (16:02)
[2017-04-29] MEDS ORDERED: Nitroglycerin 1,000 MCG/10 ML VIAL IV ONE (16:02)
[2017-04-29] MEDS ORDERED: 0.9 % Sodium Chloride 1,000 ML ONE ×2 (16:02→16:26)
[2017-04-29] MEDS ORDERED: *HR* Heparin 10,000 UNIT/10 ML VIAL ONE (16:02)
[2017-04-29] MEDS ORDERED: *HR* FentaNYL (PF) 100 MCG/2 ML VIAL ONE (16:25)
[2017-04-29] MEDS ORDERED: *HR* Midazolam HCl 2 MG/2 ML VIAL ONE (16:25)
--- NOTE | 2017-04-29 16:30 | Pre-Sedation Evaluation ---
Pre-sedation evaluation - Pre-sedation checklist Date of procedure: 04/29/17 Procedure: [facility] Recent Vitals: Last Vital Signs Temp 98.4 F 04/29/17 15:31 Pulse 77 04/29/17 15:31 Resp 16 04/29/17 15:31 BP 125/91 04/29/17 15:31 Pulse Ox 97 04/29/17 15:31 H&P (including ROS) documented in medical record: Yes Previous reaction to sedatives/anesthetics: No Dietary Status: NPO after Midnight Dentition: full dentition ASA Classification *see protocol: CLASS II-Mild systemic disease, E-EMERGENCY- Add to any of the above to indicate emergent Plan of Care: Pt appropriate candidate for procedure/moderate/conscious sedation
[2017-04-29] MEDS ORDERED: Tirofiban 12.5 MG/250ML 12.5 MG/250 ML BAG ONE (16:52)
[2017-04-29] MEDS ORDERED: *HR* Ticagrelor 90 MG TABLET ONE (17:01)
[2017-04-29] MEDS ORDERED: Tirofiban 12.5 MG/250ML 12.5 MG/250 ML BAG IVC SCH (17:30)
--- NOTE | 2017-04-29 17:35 | Invasive Diagnostic Lab Proc ---
Name: Dayana Brady Date of Study: 04/29/2017 Date: 1985 Ht: 68.1in Medical Record#: [id number] Age: 32 Wt: 171.96lb Gender: Female BSA: 1.92 Order #: [id number] BMI: 26.06 Physicians Procedure Physician: Marcellus Allen MD Referring MD: Referring MD: Staff Name Position Time In Mic Michael RN Monitor 04:24 PM Ron Martínez RN Account Assistant 04:24 PM Chavez Cheatham RT (R) Scrub 04:24 PM Indications Indication Non-Stemi Procedures Performed Procedure L HRT ARTERY/VENTRICLE ANGIO PRQ CARD BM STENT W/ANGIO 1 VSL Pre-Procedure Checklist Informed consent is complete signed and on chart. H&P is on chart. ID band is on and ID verified with patient. Patient NPO for procedure The procedure was described for the patient and questions were answered. ECG is on chart. Plan of Care Patient will tolerate the procedure without complications. Adequate level of comfort will be maintained. Hemodynamics will remain stable Patient will recover from procedure without complications. Respiratory function will be maintained. Cardiac rhythm will remain stable. Patient temperature will be maintained. Patient and/or family have verbalized understanding of the procedure. Patient Education Chief Complaint/Reason for Test: Cardiac Cath Developmental Category: Adult (18-64 years) Developmentally Appropriate for Age: Yes Learning Barriers: None Education Needs: Procedure Education Method: Verbal Information Taught: Cardiac Cath Educational Evaluation: Able to repeat information Intravenous Access Time IV Size Location DC'd Fluid/Drip Rate Units RN 18g 1 03/10" Patent On Arrival Lt Antecubital 0.9NaCl ml/hr Allergies No Known Allergies NO KNOWN DRUG ALLERGIES Vital Signs Time BP (mmHg) HR (bpm) O2 Sat. RR (bpm) LOC 04:25 PM / % 5 = Fully awake and oriented or at pre-proc level 04:27 PM 134 / 89 61 97 % 16 04:32 PM 136 / 94 73 95 % 21 04:37 PM 149 / 91 81 95 % 15 04:42 PM 129 / 84 73 91 % 18 04:47 PM 136 / 87 84 89 % 17 04:52 PM 132 / 86 80 88 % 17 04:57 PM 132 / 82 75 89 % 17 05:02 PM 136 / 87 72 91 % 16 05:07 PM 132 / 82 75 91 % 19 05:12 PM 139 / 86 81 89 % 19 05:17 PM 147 / 94 81 96 % 14 Procedural Medications Time Medication Dose Units Method Given By 04:25 PM Oxygen 2 L/min nasal cannula Ron Martínez RN 04:27 PM Versed 1 mg Intravenous Ron Martínez RN 04:27 PM Fentanyl 50 mcg Intravenous Ron Martínez RN 04:38 PM Versed 1 mg Intravenous BasilthornRon lilly RN 04:38 PM Fentanyl 50 mcg Intravenous Ron Martínez RN 04:39 PM Lidocaine 2% 19 ml Subcutaneous Marcellus Allen MD 04:52 PM Heparin 1000 units Intravenous Ron Martínez RN 04:55 PM Aggrastat Bolus: 37.5 ml Intravenous Ron Martínez RN 05:02 PM Aggrastat 12.5mg/250ml 13.5 ml/hr Intravenous Ron Martínez RN 05:09 PM Nitroglycerin 100 mcg Intracoronary Chaitanya Allen MD 05:13 PM Brilinta 180 mg Orally Ron Martínez RN Bart Score Preprocedure Postprocedure Activity 2- Moves 4 extremities sustained head lift Activity 2- Moves 4 extremities sustained head lift Circulation 2- SBP +/= 20 points of pre-anesthetic level Circulation 2- SBP +/= 20 points of pre-anesthetic level Consciousness 2- Awake and alert oriented x 3 Consciousness 2- Awake and alert oriented x 3 O2 Saturation 2- Able to maintain O2 satruation of 92% on room air O2 Saturation 2- Able to maintain O2 satruation of 92% on room air Respiratory 2- Able to deep breathe and cough well Respiratory 2- Able to deep breathe and cough well Total Score 10 Total Score 10 Contrast Agent: Isovue Diagnostic Contrast: 133 ml Total Contrast: 133 ml Fluoro Dose: 742 mGy Activated Clotting Time Time Seconds to Clot 04:54 PM 204 Procedure Log Time Note Enter By 04:24 PM CathStat 04:24 PM [facility] Michael Haile RN Position: Monitor Time in: 16:24 finn 04:24 PM Ron Martínez RN Position: Account Assistant Time in: 16:24 finn 04:24 PM Chavez Cheatham RT (R) Position: Scrub [facility]: [facility] PM Patient charges- Angio tray pack, Navilyst 3mm J, Pulse Oximetry and ACIST tubing and transducer jcan : PM Hair removed from procedure site in procedure lab using clippers. Bilateral groin prepped with Chloraprep by Chavez Cheatham (R), then patient was draped. Skin intact. [facility]: PM [facility] Meet and grejohn completed [facility] : PM Sign in performed according to hospital policy. [facility] : PM Procedure start 16:25 [facility] PM Time: 16:25 Oxygen on at 2 L/min per nasal cannula by Ron Martínez RN [email or web address] : PM Time: 16:25 Patient comfortable and pain free: Yes [facility] PM Time: 16:25LOC: 5 = Fully awake and oriented or at pre-proc level [facility] Clinical Presentation: Non-STEMI [facility] : PM Vitals capture started with the following parameters, Patient=Adult, Interval=5 min, Initial Zukfcvim=444 mmHg, Deflation Rate=5 mmHg, Cuff placed on Right Arm 04:27 PM HR=61 bpm, RIYX=794/89 mmhg, SpO2=97.0 %, Resp=16 B/min, Comment=nsr 04:27 PM Time: 16:27 Versed 1 mg Intravenous Given by Ron Martínez RN 04:28 PM Time: 16:27 Fentanyl 50 mcg Intravenous Given by Ron Martínez RN 04:32 PM HR=73 bpm, VNOS=296/94 mmhg, SpO2=95.0 %, Resp=21 B/min, Comment=nsr 04:34 PM Pressure channel 1 zeroed. 04:36 PM Time out performed according to hospital policy [facility] 04:37 PM HR=81 bpm, JNIG=834/91 mmhg, SpO2=95.0 %, Resp=15 B/min, Comment=nsr 04:38 PM Time: 16:38 Versed 1 mg Intravenous Given by Ron Martínez RN :38 PM Time: 16:38 Fentanyl 50 mcg Intravenous Given by Ron Martínez RN [email or web address] 04:39 PM Time: 16:39 19 ml Lidocaine 2% to right groin Subcutaneous Given by Marcellus Allen MD [email or web address] 04:40 PM 5Fr FR 4 catheter inserted over the wire DN [email or web address] 04:40 PM RCA angiography performed in multiple views. [email or web address] 04:42 PM HR=73 bpm, XKNX=662/84 mmhg, SpO2=91.0 %, Resp=18 B/min, Comment=nsr 04:42 PM Catheter removed [email or web address] 04:43 PM 5Fr FL 4 catheter inserted over the wire DN jcallihan 04:44 PM LCA angiography performed in multiple views. [email or web address] 04:44 PM Lesion found in Proximal RCA. Pre Stenosis: 40 Pre LIZZIE Flow: [email or web address] 04:44 PM Lesion found in Distal RCA. Pre Stenosis: 95 Pre LIZZIE Flow: 3 [email or web address] 04:47 PM HR=84 bpm, KEFC=470/87 mmhg, SpO2=89.0 %, Resp=17 B/min, Comment=nsr 04:48 PM Catheter removed [email or web address] 04:49 PM 5Fr Pigtail catheter inserted over the wire DN jcallihan 04:49 PM Recorded Pressure: LV, HR=80, Condition=Condition 1 (Left Ventricle) LV 125/11/19 04:50 PM Recorded Pressure: LV, HR=79, Condition=Condition 1 (Left Ventricle) LV 125/13/17 04:50 PM Catheter selectively placed in left ventricle [email or web address] 04:51 PM Bolus angiogram of left Ventricle complete: 10 ml/sec for a total of 20 mls [email or web address] 04:51 PM At 16:51 the ACT was 204 seconds. [email or web address] 04:51 PM Recorded Pressure: LV, Ao, HR=78, Condition=Condition 1 (Left Ventricle) LV 468/320/363, (Aorta) Ao 117/42/75 04:51 PM Recorded Pressure: LV, Ao, HR=78, Condition=Condition 1 (Left Ventricle) LV 107/31/31, (Aorta) Ao 115/88/102 04:52 PM HR=80 bpm, TBMY=362/86 mmhg, SpO2=88.0 %, Resp=17 B/min, Comment=nsr 04:52 PM Time: 16:52 Heparin 1000 units Intravenous Given by Ron Martínez RN [email or web address] 04:53 PM PCI Status Urgent [email or web address] 04:54 PM PCI Indication: PCI for high risk Non-STEMI or unstable angina jcallihan 04:54 PM Inflation device was opened. [email or web address] 04:54 PM .014 [employer] [place] 190cm guide wire across target lesion- successful. reused? No jcallihan 04:54 PM 6Fr JR 4 Runway guide catheter was used to cannulate the PCI vessel successfully. reused? No jcallihan 04:54 PM 2.0 mm x 12 mm Emerge Monorail balloon across target lesion- successful. reused? No jcallihan 04:55 PM Time: 16:55 Aggrastat 12.5mg/250ml 13.5 ml/hr Intravenous Given by Ron Martínez RN Fierro pump [email or web address] 04:55 PM Recorded Pressure: Ao, HR=75, Condition=Condition 1 (Aorta) Ao 126/81/102 04:55 PM Time: 16:55 Aggrastat Bolus: 37.5 ml Intravenous Given by Ron Martínez RN Fierro pump [email or web address] 04:57 PM HR=75 bpm, GKMB=747/82 mmhg, SpO2=89.0 %, Resp=17 B/min, Comment=nsr 04:57 PM Balloon inflated @ 6 gabbie for 7 seconds [email or web address] 04:58 PM Balloon catheter removed intact. [email or web address] 05:01 PM 3.0mm x 16mm Synergy drug-eluting stent across target lesion- successful Lot #[id number] [email or web address] 05:02 PM HR=72 bpm, AWUQ=464/87 mmhg, SpO2=91.0 %, Resp=16 B/min, Comment=nsr 05:03 PM Stent deployed @ 9 gabbie for 11 seconds [email or web address] 05:04 PM Stent balloon reinflated @ 16 gabbie for 14 seconds [email or web address] 05:06 PM Coronary Dominance: right [email or web address] 05:06 PM Stent delivery system removed intact. [email or web address] 05:07 PM Recorded Pressure: Ao, HR=77, Condition=Condition 1 (Aorta) Ao 126/81/101 05:07 PM HR=75 bpm, KSKD=158/82 mmhg, SpO2=91.0 %, Resp=19 B/min, Comment=nsr 05:07 PM 3.0 mm x 12mm NC Emerge balloon across target lesion- successful. reused? No [email or web address] 05:08 PM Balloon inflated @ 20 gabbie for 11 seconds [email or web address] 05:09 PM Balloon inflated @ 20 gabbie for 7 seconds [email or web address] 05:09 PM Balloon catheter removed intact. [email or web address] 05:10 PM Time: 17:09 Nitroglycerin 100 mcg Intracoronary Given by Chaitanya Allen MD [email or web address] 05:10 PM Recorded Pressure: Ao, HR=76, Condition=Condition 1 (Aorta) Ao 78/12/43 05:12 PM HR=81 bpm, XDGW=649/86 mmhg, SpO2=89.0 %, Resp=19 B/min, Comment=nsr 05:13 PM Guide catheter removed intact. [email or web address] 05:13 PM Guide wire removed intact. [email or web address] 05:13 PM Time: 17:13 Brilinta 180 mg Orally Given by Ron Martínez RN [email or web address] 05:13 PM Procedure completed at 17:13 [email or web address] 05:14 PM Did you address LIZZIE flow and Dominance? Yes [email or web address] 05:14 PM Sign out completed: Radiation Dose 742 mGy Fluoro Time: 6.9 Isovue 370 - 200ml contrast 133 ml given by Marcellus Allen MD. Complications: NoneCardiac Rehab Consult needed: YesConfirmed administered medications: Yes [email or web address] 05:14 PM Isovue 370 - 200ml,1 Bottle(s) used. [email or web address] 05:15 PM Arterial sheath pulled, Angio-seal closure device used and was Successful [id number] S/N. jcallihan 05:15 PM Estimated Blood Loss: less than 20cc jcallihan 05:15 PM Post ECG NSR jcallihan 05:16 PM Post Blood Pressure 139/86 [email or web address] 05:16 PM 17:16 Post Pulses Bilateral DP & PT 2+ [email or web address] 05:17 PM HR=81 bpm, LRFX=863/94 mmhg, SpO2=96.0 %, Resp=14 B/min, Comment=nsr 05:17 PM Information taught Cardiac Cath, PCI, and Angioseal jcallihan 05:17 PM Education needs Procedure, Plan of Care, and Responsibilities of Patient in Care [email or web address] 05:17 PM Learning barriers :None jcallihan 05:17 PM Education Methods Verbal [email or web address] 05:17 PM Education evaluation Able to repeat information jcallihan 05:17 PM Site status No bleeding/hematoma - Rt Groin as reported by Chavez Cheatham RT (R) at 17:17 [email or web address] 05:17 PM Opsite applied jcallihan 05:18 PM Report given to 2NE RN Pt taken to [facility] Room #18. 17:18 jcallihan 05:18 PM Plavix, Effient or Brilinta given Yes [email or web address] 05:18 PM Family placed in consult room. [email or web address] 05:18 PM Complications: None jcallihan 05:18 PM Fluoro Time: 6.9 [email or web address] 05:18 PM Isovue 370 - 200ml contrast 133 ml given by Marcellus Allen MD. [email or web address] 05:18 PM Radiation Dose 742 mGy [email or web address] 05:21 PM Patient out of room: 17:21 [email or web address] 05:23 PM Lesion found in Distal Circumflex. Pre Stenosis: 100 Pre LIZZIE Flow: [email or web address] 05:23 PM Lesion found in Right PDA. Pre Stenosis: 70 Pre LIZZIE Flow: [email or web address] 05:24 PM Lesion found in 1st RPL. Pre Stenosis: 80 Pre LIZZIE Flow: [email or web address] 05:26 PM Circumflex, Obtuse Marginal, Left Posterior Descending, and Left Posterolateral Coronary Arteries with 100 % stenosis. If graft is supplying this area, 0 % stenosis jcallihan 05:26 PM Right Coronary, Right Posterior Descending Arteries with Right Posterolateral and Acute Marginal branches with 95 % stenosis. If graft is supplying this area, 0 % stenosis jcallihan Complications Complication None None Hemodynamics Pressures Site Systolic/A Wave Diastolic/V Wave Mean LV 125 11 19 LV 125 13 17 LV 468 320 363 AO 117 42 75 LV 107 31 31 AO 115 88 102 AO 126 81 102 AO 126 81 101 AO 78 12 43 Post Procedure Information Blood Pressure: 139/86 mmHg Rhythm: NSR Post procedural instructions were given Closure Device Time Device Success/Fail 04/29/2017 5:18:00 PM Angio-seal Evolution Successful Site Checks Time Location Status Staff Sheath In? Note 05:17 PM Rt Groin No bleeding/hematoma Chavez Cheatham RT (R) Pulses Time Site Pre-Procedure Post-Procedure Note Bilateral DP & PT 2+ Bilateral radial 1+ 5:16:00 PM Bilateral DP & PT 2+ Updated by Michael Haile RN on 04/29/2017 5:28:11 PM electronically signed on 04/29/2017 5:29:30 PM with status of Final
[2017-04-29] MEDS: *HR* Ticagrelor 90 MG TABLET PO SCH (20:42)
[2017-04-29] MEDS ORDERED: Insulin LISPRO 300 UNITS/3 ML VIAL SQ SCH (21:00)
[2017-04-30 06:00] LABS: Basophils # 0.1 K/mcL (0.0-0.2); Basophils % 0.8 %; Eosinophils # 0.1 K/mcL (0.0-0.6); Immature Granulocytes % 0.3 % (0-4); Lymphocytes # 3.9 K/mcL (0.6-4.6); Mean Corpuscular HGB Conc 32.6 g/dL (31.6-35.5); Mean Corpuscular Hemoglobin 26.6 pg (28.0-33.3); Mean Corpuscular Volume 81.4 fL (83.0-100.0); Mean Platelet Volume 9.8 fL (9.4-12.4); Monocytes # 0.6 K/mcL (0.0-1.3); Monocytes % 4.5 %; Neutrophils # 9.6 K/mcL (1.6-8.9); Platelet Count 433 K/mcL (140-400); Red Blood Count 4.67 M/mcL (3.82-4.97); Red Cell Distribution Width 13.5 % (11.5-14.5); Segmented Neutrophils % 66.4 %
[2017-04-30 06:04] LABS: Hemoglobin 12.4 g/dL (11.5-15.4)
[2017-04-30 06:08] VITALS: BP 135/95
[2017-04-30 06:19] LABS: Alanine Aminotransferase 9 Units/L (7-52); Albumin 3.5 g/dL (3.5-5.7); Albumin/Globulin Ratio 1.3 (1.1-2.2); Alkaline Phosphatase 67 Units/L (34-104); Aspartate Amino Transferase 14 Units/L (13-39); BUN/Creatinine Ratio 20 (6-26); Bilirubin,Total 0.7 mg/dL (0.3-1.0); Blood Urea Nitrogen 10 mg/dL (6-20); Calcium 8.7 mg/dL (8.6-10.3); Carbon Dioxide 22 mEq/L (23-29); Chloride 105 mEq/L (98-107); Chol/HDL Ratio 4.7 (0-4.9); Cholesterol 84 mg/dL (< 200); Globulin 2.8 g/dL (2.4-3.5); Glucose 155 mg/dL (70-105); HDL Cholesterol 18 mg/dL (40-59); LDL Cholesterol,Calculated 36 mg/dL (0-99); Magnesium 1.8 mg/dL (1.6-2.6); Osmolality,Calculated 282 (280-300); Potassium 3.8 mEq/L (3.5-5.1); Sodium 135 mEq/L (136-145); Total Protein 6.3 g/dL (6.4-8.9); Triglycerides 152 mg/dL (< 150); eGFR For African Americans > 60 (> 60); eGFR For Non-African Americans > 60 (> 60)
[2017-04-30] MEDS: Metoprolol XL (24 HR) Succ 25 MG TAB.ER.24H PO SCH (08:35)
[2017-04-30] MEDS: *HR* Ticagrelor 90 MG TABLET PO SCH (08:35)
[2017-04-30] MEDS: Insulin LISPRO 300 UNITS/3 ML VIAL SQ SCH (08:36)
[2017-04-30] MEDS ORDERED: Aspirin 81 MG TAB.CHEW PO SCH (09:00)
[2017-04-30] MEDS ORDERED: Fluticasone Propionate Nasal 50 MCG/SPRAY BOTTLE NS SCH (09:00)
--- NOTE | 2017-04-30 10:39 | Cardiology Progress Note ---
Date of Encounter: 04/30/17 Time of Encounter: 10:30 Assessment and Plan (1) NSTEMI (non-ST elevated myocardial infarction) Current Visit: Yes Status: Acute Per Cardiology: EF 60% on echo in 2016 with no significant valvular dysfunction. EF 60% on LV gram. Peak troponin 3.62. Status post catheterization yesterday by Dr. Allen and underwent PTCA/drug-eluting stent to distal RCA 95% lesion. Has occluded circumflex stent with distal circumflex 100% lesion. Has proximal RCA 40%, right PDA 70%, first RPL 80%, ostial RV marginal 70% lesions. Chest pain-free. On aspirin, statin, beta elizabeth, and now on Brilinta-- assistance card provided. Patient provided education regarding importance of continuing dual antiplatelet therapy for at least 1 year uninterrupted. Post-DC and procedure care provided. All questions answered. Cardiology will sign off, reconsult as needed, follow-up arranged. Discussion w patient/family: The assessment and plan as outlined above was discussed with the patient and/or family members who expressed understanding and agreement. All questions were answered. Thank you for involving us in the care of your patient. Please call with any questions. Subjective Principal diagnosis: CAD Interval history: Patient denies any chest pain, short of breath, palpitations overnight. Denies any concerns from her right groin site. Denies any bleeding or blood loss. Objective Selected Entries 04/29/17 23:45 04/30/17 06:26 Temperature 97.8 F Pulse Rate 74 Respiratory Rate 15 Blood Pressure 135/95 O2 Sat by Pulse Oximetry 97 Oxygen Delivery Method Room Air General: Conversant, No Apparent Distress HEENT: Atraumatic, Normocephaly, Mucus Membranes Moist Neck: No JVD, Normal carotid pulses Cardiac: Reg Rate and Rhythm, Normal S1 and S2, No Murmur Lungs: Normal Breath Sounds, No Wheeze, Rales, Rhonchi Neuro: Alert and responsive, No focal deficits noted Abdomen: Soft, Non-Tender Skin: No rashes noted on visualized skin Musculoskeletal: No Chest Wall Tenderness Extremities: No Clubbing, No Cyanosis, No Edema, Normal Pulses Results 04/30/17 05:45 04/30/17 05:45 Lab Results Laboratory Tests 04/29/17 04/29/17 04/30/17 07:51 23:42 05:45 INR 1.0 Troponin I 3.62 H* LDL Cholesterol, Calc 36 ITS Impressions Chest X-Ray 04/29/17 07:38 IMPRESSION: 1. No acute radiographic abnormality to account for patient's chest pain. D/ / Alan Ortega MD / Alan Ortega MD Interpreting Provider: Alan Ortega MD Abdomen/Pelvis CT 04/29/17 10:25 IMPRESSION: No evidence of obstructive uropathy. Mild diverticulosis without evidence of acute diverticulitis D/ / Jeremiah Jacobo MD / Jeremiah Jacobo MD Interpreting Provider: Jeremiah Jacobo MD Active Medications Acetaminophen (Tylenol) 650 mg PO Q6HR PRN PRN Reason: Mild Pain/Fever Stop: 10/29/17 11:19 Hydrocodone Bitart/Acetaminophen (Vass 5-325 Mg) 1 tab PO Q6HR PRN PRN Reason: Moderate Pain Stop: 10/29/17 11:19 Al Hydrox/Mg Hydrox/Simethicone (Maalox) 15 ml PO Q6HR PRN PRN Reason: Dyspepsia Stop: 10/29/17 11:19 Aspirin (Aspirin) 81 mg PO DAILY TATE Stop: 10/30/17 09:01 Last Admin: 04/30/17 08:35 Dose: 81 mg Atorvastatin Calcium (Lipitor) 80 mg PO HS TATE Stop: 10/29/17 21:01 Last Admin: 04/29/17 20:42 Dose: 80 mg Dextrose/Water (Dextrose 50% (Syg)) 25 ml IVP AD PRN PRN Reason: Hypoglycemia Stop: 10/29/17 15:15 Docusate Sodium (Colace) 100 mg PO BID PRN PRN Reason: Constipation Stop: 10/29/17 21:01 Fluticasone Propionate (Flonase) 1 mcg NS DAILY TATE PRN Reason: Protocol Stop: 10/30/17 09:01 Last Admin: 04/30/17 08:35 Dose: 1 mcg Glucagon (Glucagen) 1 mg IM ONCE PRN PRN Reason: Hypoglycemia Stop: 10/29/17 15:15 Glucose (Gluctose) 15 gm PO ONCE PRN PRN Reason: Hypoglycemia Stop: 10/29/17 15:15 Glucose (Gluctose) 30 gm PO ONCE PRN PRN Reason: Hypoglycemia Stop: 10/29/17 15:15 Heparin Sodium (Porcine) (Heparin) 4,000 unit IVP Q6HR PRN PRN Reason: SEE COMMENTS Stop: 10/29/17 08:29 Last Admin: 04/29/17 15:51 Dose: 4,000 unit Heparin Sodium (Porcine) (Heparin) 2,000 unit IVP Q6H PRN PRN Reason: SEE COMMENTS Stop: 10/29/17 08:29 Nitroglycerin (Nitroglycerin Premix 25 Mg/250 Ml) 25 mg in 250 mls @ 6 mls/hr IVC .Q24H TATE; 10 MCG/MIN PRN Reason: Protocol Stop: 10/29/17 08:31 Last Admin: 04/29/17 08:37 Dose: 10 mcg/min, 6 mls/hr Heparin Sodium/Dextrose (Heparin 25,000 Unit/500 Ml D5w) 25,000 unit in 500 mls @ 18.507 mls/hr IVC .Q24H TATE; 12 UNIT/KG/HR PRN Reason: Protocol Stop: 10/29/17 08:31 Last Titration: 04/29/17 15:46 Dose: 16 unit/kg/hr, 24.676 mls/hr Dextrose (Dextrose 5%) 1,000 mls @ 100 mls/hr IVC .Q10H PRN PRN Reason: HYPOGLYCEMIA Stop: 10/29/17 15:15 Insulin Human Lispro (Humalog) 0 units SQ HS TATE PRN Reason: Protocol Stop: 10/29/17 21:01 Last Admin: 04/29/17 20:39 Dose: Not Given Insulin Human Lispro (Humalog) 0 units SQ TIDAC TATE PRN Reason: Protocol Stop: 10/29/17 16:31 Last Admin: 04/30/17 08:36 Dose: 4 units Metoprolol Succinate (Toprol Xl) 25 mg PO DAILY TATE Stop: 10/29/17 11:31 Last Admin: 04/30/17 08:35 Dose: 25 mg Naloxone HCl (Narcan) 0.4 mg IVP Q2MIN PRN PRN Reason: SEE COMMENTS Stop: 10/29/17 11:19 Ondansetron HCl (Zofran) 4 mg IVP Q6HR PRN PRN Reason: Nausea And Vomiting Stop: 10/29/17 11:19 Promethazine HCl (Phenergan) 12.5 mg IVP Q6HR PRN PRN Reason: Nausea And Vomiting Stop: 10/29/17 11:19 Ticagrelor (Brilinta) 90 mg PO BID TATE Stop: 10/29/17 21:01 Last Admin: 04/30/17 08:35 Dose: 90 mg - Imaging and Cardiology Cardiac cath: report reviewed - EKG Interpretation EKG results cardiology: other (Telemetry reviewed with no events noted.) Consult Discharge Plan - Plan Referrals: Shayla Perez MD [Primary Care Provider] -
--- NOTE | 2017-04-30 12:20 | Discharge Summary ---
- NOTES TO OUTPATIENT PROVIDER Notes to Outpatient Provider: NSTEMI with stent occlusion, new stent placed. Plavix discontinued, started on Brilinta 90 mg BID for the first month. Follow up with cardiology Orders not resulted at time of discharge: Pending orders 04/29/17 17:24 ECG 12 lead ECG [ECG] Stat 04/30/17 06:00 ECG 12 lead ECG [ECG] AM 0600 04/30/17 11:42 [place] 04005/01/17 04:00 CBC [Complete Blood Count] [HEME] AM 0400 Chem 7 [Basic Metabolic Panel] AM 0400 Date of Encounter: 04/30/17 Time of Encounter: 12:18 - Discharge Diagnosis (1) NSTEMI (non-ST elevated myocardial infarction) Priority: Primary Status: Acute (2) CAD (coronary artery disease) Priority: Secondary Status: Chronic Qualifiers: Coronary Disease-Associated Artery/Lesion type: [place] artery [place] vs. 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 Brady is a 32 year old female with DM, Uncontrolled, CAD with multiple stents, admitted for NSTEMI She is seen and evaluated at bedside this morning with her spouse She has no new complains She is s/p [facility] cardiology :EF 60% on echo in 2016 with no significant valvular dysfunction. EF 60% on LV gram. Peak troponin 3.62. Status post catheterization yesterday by Dr. Allen and underwent PTCA/drug-eluting stent to distal RCA 95% lesion. Has occluded circumflex stent with distal circumflex 100% lesion. Has proximal RCA 40%, right PDA 70%, first RPL 80%, ostial RV marginal 70% lesions. Chest pain-free. On aspirin, statin, beta elizabeth, and now on Brilinta-- assistance card provided. Patient provided education regarding importance of continuing dual antiplatelet therapy for at least 1 year uninterrupted. Patient educated again about glucose control, and medication non-compliance She had skipped taking plavix due to endometriosis during her periods Tobacco cessation counselling provided for 3 mins, declined NRT, wishes to self quit Discharge discussed with: patient, family, nurse Time spent discussing smoking cessation with patient: 3 to 10 minutes - Time Spent with Patient Total time spent providing and/or coordinating discharge services: Less than 30 minutes - Discharge Medications Prescriptions: Ticagrelor [Brilinta] 90 mg PO BID #60 tablet Home Medications: Aspirin 81 mg PO DAILY #30 09/22/16 [Rx] Atorvastatin [Lipitor] 80 mg PO HS #30 tab 09/22/16 [Rx] Metformin HCl [Glucophage] 1,000 mg PO Q12H #60 tablet 09/22/16 [Rx] Metoprolol XL (24 HR) Succ [Toprol Xl] 25 mg PO DAILY #30 09/22/16 [Rx] Nitroglycerin 0.4 mg SL Q5MIN PRN #10 09/22/16 [Rx] Fluticasone Propionate Nasal [Flonase] 1 spr NS DAILY 04/29/17 [History] Glimepiride [Amaryl] 4 mg PO DAILY 04/29/17 [History] Ondansetron HCl [Zofran] 4 mg PO DAILY 04/29/17 [History] Ticagrelor [Brilinta] 90 mg PO BID #60 tablet 04/30/17 [Rx] Allergies/Adverse Reactions: 3 Allergy/AdvReac Type Severity Reaction Status Date / Time No Known Allergies Allergy Verified 05/04/15 14:18 Date of admission: 04/29/17 11:18 Primary care physician: Shayla Perez Consults: 04/29/17 17:24 Consult to Cardiac Rehabilitation-Phase1 [CONS] Routine Comment: Reason for Consult: post op PCI Call Completed: Yes Discharging clinician: David Mccann Anticipated date of discharge: 04/30/17 - Constitutional Vitals: Temp Pulse Resp BP Pulse Ox 97.8 F 74 15 135/95 97 04/30/17 06:26 04/30/17 06:26 04/30/17 06:26 04/30/17 06:26 04/30/17 06:26 General appearance: Present: A&O X 3, no acute distress, answers questions appropriately - Head Head exam: Present: atraumatic, normocephalic - Eye Eye exam: Present: PERRL, conjuntiva pink, sclera anicteric Pupils: Present: PERRL - Neck Neck exam general surgery: Present: supple, trachea midline. Absent: lymphadenopathy - Respiratory Respiratory exam: Present: CTAB. Absent: accessory muscle use, rales, rhonchi, wheezes - Cardiovascular Cardiovascular exam: Present: RRR, +S1, +S2. Absent: diastolic murmur, gallop, rubs, systolic murmur - Additional comments: R groin access site clean and dry, no hematoma - Extremities Exam Extremities exam: Present: warm, radial pulses palpable and symmetrical. Absent : calf tenderness, cyanotic, pedal edema - Neurological Exam Neurological exam: Present: alert, CN II-XII intact, oriented X3, no focal deficits. Absent: pronater drift, facial droop, speech deficit - Skin Skin exam: Present: dry, intact - Patient Status Disposition: Home, Self-Care Condition: Good Functional capacity at discharge: independent ambulation Overall status at discharge: patient is back to baseline - Discharge Instructions Instructions: Ticagrelor (By mouth), Myocardial Infarction (DC), Right Heart Catheterization (DC), Chronic Hypertension (DC) Follow Up With: Shayla Perez MD [Primary Care Provider] - - Diet and Activity Activity: resume usual activities as tolerated Diet: diabetic diet, low fat, low cholesterol, low salt diet
== END 2017-04-30 12:45 | disposition home or self-care (01) | DRG 174 ==
LOC: EMEROO 07:20 → 2NENU 07:20
PROVIDERS: ADMIT Family Medicine; ATTEND Internal Medicine

== ENCOUNTER 2020-10-08 13:44 | Inpatient (IN) ==
[2020-10-08 15:39] LABS: Basophils # 0.1 K/mcL (0.0-0.2); Basophils % 0.5 %; Eosinophils # 0.1 K/mcL (0.0-0.6); Eosinophils % 0.3 %; Hematocrit 39.7 % (35.3-44.9); Hemoglobin 13.4 g/dL (11.5-15.4); Immature Granulocytes % 0.4 % (0-4); Lymphocytes # 2.6 K/mcL (0.6-4.6); Lymphocytes % 12.9 %; Mean Corpuscular HGB Conc 33.8 g/dL (31.6-35.5); Mean Corpuscular Hemoglobin 28.8 pg (28.0-33.3); Mean Corpuscular Volume 85.4 fL (83.0-100.0); Mean Platelet Volume 10.5 fL (9.4-12.4); Monocytes % 4.9 %; Platelet Count 264 K/mcL (140-400); Red Blood Count 4.65 M/mcL (3.82-4.97); Red Cell Distribution Width 13.4 % (11.5-14.5); White Blood Count 19.8 K/mcL (4.3-11.1)
[2020-10-08 15:54] LABS: INR 1.2; Prothrombin Time 13.3 Seconds (9.4-12.1)
[2020-10-08 15:58] LABS: Activated Partial Thrombo Time 26.4 Seconds (26.0-36.0)
[2020-10-08 16:06] LABS: BUN/Creatinine Ratio 19 (6-26); Blood Urea Nitrogen 11 mg/dL (6-20); Calcium 8.6 mg/dL (8.6-10.3); Carbon Dioxide 23 mEq/L (23-29); Chloride 106 mEq/L (98-107); Glucose 262 mg/dL (70-105); Osmolality,Calculated 288 (280-300); Potassium 3.8 mEq/L (3.5-5.1); Sodium 135 mEq/L (136-145); Troponin I 6.88 ng/mL (< 0.04); eGFR For African Americans > 60 (> 60); eGFR For Non-African Americans > 60 (> 60)
[2020-10-08] MEDS ORDERED: *HR* Heparin 5,000 UNIT/ML VIAL IVP ONE (16:06)
[2020-10-08] MEDS ORDERED: *HR* Heparin 5,000 UNIT/ML VIAL IVP PRN (16:06)
[2020-10-08] MEDS ORDERED: Aspirin 81 MG TAB.CHEW PO ONE (16:11)
[2020-10-08] MEDS ORDERED: Ondansetron 4 MG/2 ML VIAL IVP ONE (16:13)
[2020-10-08] MEDS ORDERED: Nitroglycerin 0.4 MG TAB.SUBL SL PRN (16:26)
[2020-10-08] MEDS: Heparin 25,000UNIT/250ML 1/2NS 25,000 UNIT/250 ML IV.SOLN IVC SCH (16:49)
[2020-10-08] MEDS ORDERED: Ondansetron 4 MG/2 ML VIAL IVP PRN (17:59)
[2020-10-08] MEDS ORDERED: Naloxone 0.4 MG/ML INJ IVP PRN (17:59)
[2020-10-08] MEDS ORDERED: *HR* Dextrose 50 % in Water (Vial) 50 ML VIAL IVP PRN (18:04)
[2020-10-08] MEDS ORDERED: Dextrose Gel 15 GM/37.5 ML TUBE PO PRN ×2 (18:04)
[2020-10-08] MEDS ORDERED: D5% in Water 1,000 ML IVC PRN (18:04)
[2020-10-08] MEDS ORDERED: Perflutren Lipid Microsphere 1.3 ML in 0.9 % Sodium Chloride 8.7 ML IVP PRN (18:21)
[2020-10-08] MEDS: Insulin LISPRO 300 UNITS/3 ML VIAL SUBQ SCH (18:52)
[2020-10-08] MEDS ORDERED: *HR* Labetalol 20 MG/4 ML SYRINGE IVP ONE (18:53)
[2020-10-08] MEDS ORDERED: *HR* Promethazine 25 MG/ML VIAL IM PRN (19:42)
[2020-10-08 20:29] LABS: Chol/HDL Ratio 6.1 (0-4.9)
[2020-10-08] MEDS ORDERED: Melatonin 3 MG TABLET PO PRN (21:00)
[2020-10-08] MEDS: Megestrol Acetate 400 MG/10 ML UDC PO SCH (21:41)
[2020-10-08] MEDS: *HR* Ticagrelor 90 MG TABLET PO SCH (21:41)
[2020-10-08] MEDS ORDERED: *HR* LORazepam 2 MG/ML VIAL IVP ONE (21:54)
[2020-10-09 02:42] LABS: Basophils # 0.1 K/mcL (0.0-0.2); Basophils % 0.4 %; Hematocrit 37.9 % (35.3-44.9); Hemoglobin 12.8 g/dL (11.5-15.4); Immature Granulocytes % 0.4 % (0-4); Lymphocytes # 1.6 K/mcL (0.6-4.6); Lymphocytes % 11.3 %; Mean Corpuscular HGB Conc 33.8 g/dL (31.6-35.5); Mean Corpuscular Hemoglobin 28.7 pg (28.0-33.3); Mean Platelet Volume 11.3 fL (9.4-12.4); Monocytes # 0.5 K/mcL (0.0-1.3); Monocytes % 3.4 %; Neutrophils # 12.1 K/mcL (1.6-8.9); Platelet Count 275 K/mcL (140-400); Red Blood Count 4.46 M/mcL (3.82-4.97); Red Cell Distribution Width 13.2 % (11.5-14.5); Segmented Neutrophils % 84.5 %; White Blood Count 14.3 K/mcL (4.3-11.1)
[2020-10-09 02:54] LABS: Alanine Aminotransferase 13 Units/L (7-52); Albumin 3.7 g/dL (3.5-5.7); Albumin/Globulin Ratio 1.2 (1.1-2.2); Alkaline Phosphatase 79 Units/L (34-104); Aspartate Amino Transferase 25 Units/L (13-39); BUN/Creatinine Ratio 19 (6-26); Bilirubin,Total 0.6 mg/dL (0.3-1.0); Blood Urea Nitrogen 11 mg/dL (6-20); Calcium 8.8 mg/dL (8.6-10.3); Carbon Dioxide 22 mEq/L (23-29); Chloride 104 mEq/L (98-107); Globulin 3.1 g/dL (2.4-3.5); Glucose 293 mg/dL (70-105); Osmolality,Calculated 292 (280-300); Potassium 3.6 mEq/L (3.5-5.1); Sodium 136 mEq/L (136-145); Total Protein 6.8 g/dL (6.4-8.9); eGFR For African Americans > 60 (> 60); eGFR For Non-African Americans > 60 (> 60)
[2020-10-09] MEDS: *HR* Heparin 5,000 UNIT/ML VIAL IVP PRN ×2 (03:56→11:44)
[2020-10-09] MEDS: Insulin LISPRO 300 UNITS/3 ML VIAL SUBQ SCH ×3 (08:23→17:02)
[2020-10-09] MEDS: *HR* Ticagrelor 90 MG TABLET PO SCH ×2 (09:28→20:32)
[2020-10-09] MEDS: Megestrol Acetate 400 MG/10 ML UDC PO SCH (09:29)
[2020-10-09] MEDS: Aspirin 81 MG TAB.CHEW PO SCH (09:29)
[2020-10-09] MEDS: Metoprolol XL (24 HR) Succ 25 MG TAB.ER.24H PO SCH (09:29)
[2020-10-09] MEDS ORDERED: Heparin 1,000 UNITS/500 mL 500 ML ONE (12:31)
[2020-10-09] MEDS ORDERED: *HR* Heparin 10,000 UNIT/10 ML VIAL ONE (12:31)
[2020-10-09] MEDS ORDERED: Nitroglycerin 1,000 MCG/5 ML VIAL IV ONE (12:31)
[2020-10-09] MEDS ORDERED: ISOVUE-370 200 ML INFUS..BTL ONE ×2 (12:31→13:38)
[2020-10-09] MEDS ORDERED: 0.9 % Sodium Chloride 1,000 ML ONE ×2 (12:31→12:48)
[2020-10-09] MEDS ORDERED: *HR* Midazolam HCl 2 MG/2 ML VIAL ONE (12:52)
[2020-10-09] MEDS ORDERED: *HR* FentaNYL (PF) 100 MCG/2 ML VIAL ONE (12:52)
[2020-10-09] MEDS ORDERED: *HR* Ticagrelor 90 MG TABLET ONE (13:31)
[2020-10-09] MEDS ORDERED: *HR* Atropine Sulfate 1 MG/10 ML SYRINGE ONE (13:38)
[2020-10-09 13:55] LABS: Estimated Average Glucose 229 mg/dl; Hemoglobin A1C 9.6 %
[2020-10-09] MEDS ORDERED: 0.9 % Sodium Chloride 1,000 ML IVC SCH (14:00)
[2020-10-09] MEDS: Heparin 25,000UNIT/250ML 1/2NS 25,000 UNIT/250 ML IV.SOLN IVC SCH (14:20)
[2020-10-09] MEDS ORDERED: Insulin DETEMIR 100 UNIT/ML X5UNITS SUBQ SCH (21:00)
[2020-10-09] MEDS ORDERED: Insulin LISPRO 300 UNITS/3 ML VIAL SUBQ SCH (21:00)
[2020-10-09 23:56] VITALS: O2SAT 99
[2020-10-10 05:42] LABS: Hematocrit 37.7 % (35.3-44.9); Hemoglobin 12.8 g/dL (11.5-15.4); Mean Corpuscular Hemoglobin 28.9 pg (28.0-33.3); Mean Corpuscular Volume 85.1 fL (83.0-100.0); Mean Platelet Volume 10.9 fL (9.4-12.4); Platelet Count 287 K/mcL (140-400); Red Blood Count 4.43 M/mcL (3.82-4.97); Red Cell Distribution Width 13.2 % (11.5-14.5); White Blood Count 13.8 K/mcL (4.3-11.1)
[2020-10-10 06:09] LABS: BUN/Creatinine Ratio 23 (6-26); Blood Urea Nitrogen 14 mg/dL (6-20); Calcium 8.6 mg/dL (8.6-10.3); Carbon Dioxide 23 mEq/L (23-29); Chloride 104 mEq/L (98-107); Glucose 118 mg/dL (70-105); Osmolality,Calculated 284 (280-300); Potassium 3.4 mEq/L (3.5-5.1); Sodium 136 mEq/L (136-145); eGFR For African Americans > 60 (> 60); eGFR For Non-African Americans > 60 (> 60)
[2020-10-10 07:17] VITALS: BP 150/85; PULSE 85; TEMP 98.1
[2020-10-10] MEDS: Metoprolol XL (24 HR) Succ 25 MG TAB.ER.24H PO SCH (09:12)
[2020-10-10] MEDS: *HR* Ticagrelor 90 MG TABLET PO SCH (09:12)
[2020-10-10] MEDS: Aspirin 81 MG TAB.CHEW PO SCH (09:12)
[2020-10-10] MEDS: Insulin LISPRO 300 UNITS/3 ML VIAL SUBQ SCH (09:12)
== END 2020-10-10 10:59 | disposition home or self-care (01) | DRG 174 ==
LOC: 2ANU 13:44 → EMEROOARM 13:44 → SUATTDRO 17:20 → 2ANU 17:56
PROVIDERS: ADMIT Internal Medicine; ATTEND Internal Medicine

== ENCOUNTER 2021-10-21 08:08 | Inpatient (IN) ==
[2021-10-21 09:22] LABS: Basophils # 0.2 K/mcL (0.0-0.2); Basophils % 1.1 %; Eosinophils # 0.2 K/mcL (0.0-0.6); Eosinophils % 1.5 %; Hemoglobin 14.1 g/dL (11.5-15.4); Immature Granulocytes % 0.3 % (0-4); Lymphocytes # 4.8 K/mcL (0.6-4.6); Lymphocytes % 33.6 %; Mean Corpuscular HGB Conc 32.8 g/dL (31.6-35.5); Mean Corpuscular Volume 88.3 fL (83.0-100.0); Mean Platelet Volume 10.1 fL (9.4-12.4); Monocytes # 0.7 K/mcL (0.0-1.3); Monocytes % 4.8 %; Neutrophils # 8.4 K/mcL (1.6-8.9); Platelet Count 340 K/mcL (140-400); Red Blood Count 4.87 M/mcL (3.82-4.97); Red Cell Distribution Width 13.4 % (11.5-14.5); Segmented Neutrophils % 58.7 %; White Blood Count 14.3 K/mcL (4.3-11.1)
[2021-10-21 09:40] LABS: BUN/Creatinine Ratio 18 (6-26); Blood Urea Nitrogen 14 mg/dL (6-20); Calcium 9.1 mg/dL (8.6-10.3); Carbon Dioxide 25 mEq/L (23-29); Chloride 105 mEq/L (98-107); Glucose 256 mg/dL (70-105); Osmolality,Calculated 293 (280-300); Potassium 3.8 mEq/L (3.5-5.1); Sodium 137 mEq/L (136-145)
[2021-10-21] MEDS ORDERED: Morphine Sulfate 2 MG/ML SYRINGE IVP ONE (09:44)
[2021-10-21] MEDS ORDERED: Ondansetron 4 MG/2 ML VIAL IVP ONE (09:45)
[2021-10-21 09:47] LABS: Troponin I 0.06 ng/mL (< 0.04)
[2021-10-21 09:52] LABS: Platelet Estimate Normal (Normal); Reactive Lymphocytes Present (Not Present)
[2021-10-21] MEDS ORDERED: *HR* Heparin 5,000 UNIT/ML VIAL IVP PRN ×2 (09:55)
[2021-10-21] MEDS ORDERED: *HR* Heparin 5,000 UNIT/ML VIAL IVP ONE (09:55)
[2021-10-21] MEDS ORDERED: Heparin 25,000UNIT/250ML 1/2NS 25,000 UNIT/250 ML IV.SOLN IVC SCH (10:00)
[2021-10-21 10:21] LABS: Influenza A PCR Negative (Negative); Influenza B PCR Negative (Negative); Resp. Syncytial Virus PCR Negative (Negative)
[2021-10-21 10:22] LABS: SARS-CoV-2 by PCR (In House) Negative (Negative)
[2021-10-21 10:37] LABS: Hematocrit 44.3 % (35.3-44.9); Hemoglobin 14.6 g/dL (11.5-15.4); Mean Corpuscular Hemoglobin 28.7 pg (28.0-33.3); Mean Corpuscular Volume 87.2 fL (83.0-100.0); Mean Platelet Volume 10.2 fL (9.4-12.4); Platelet Count 326 K/mcL (140-400); Red Blood Count 5.08 M/mcL (3.82-4.97); Red Cell Distribution Width 13.3 % (11.5-14.5); White Blood Count 13.3 K/mcL (4.3-11.1)
[2021-10-21] MEDS ORDERED: *HR* FentaNYL (PF) 100 MCG/2 ML VIAL ONE ×2 (10:45→12:13)
[2021-10-21 10:46] LABS: Heparin anti-factor XA UFH < 0.04 IU/mL (0.30-0.70); Prothrombin Time 10.8 Seconds (9.4-12.1)
[2021-10-21] MEDS ORDERED: Nitroglycerin 1,000 MCG/5 ML VIAL IV ONE (10:46)
[2021-10-21] MEDS ORDERED: Heparin 1,000 UNITS/500 mL 500 ML ONE (10:46)
[2021-10-21] MEDS ORDERED: *HR* Midazolam HCl 2 MG/2 ML VIAL ONE ×2 (10:46→11:26)
[2021-10-21] MEDS ORDERED: 0.9 % Sodium Chloride 1,000 ML ONE (10:46)
[2021-10-21] MEDS ORDERED: Iopamidol - 370 200 ML INFUS..BTL ONE (10:46)
[2021-10-21] MEDS ORDERED: *HR* Heparin 10,000 UNIT/10 ML VIAL ONE (10:46)
[2021-10-21] MEDS ORDERED: Naloxone 0.4 MG/ML INJ IVP PRN (10:57)
[2021-10-21] MEDS ORDERED: Ondansetron 4 MG/2 ML VIAL IVP PRN (10:57)
[2021-10-21] MEDS ORDERED: Tirofiban 5 MG/100 mL 5 MG/100 ML VIAL IV ONE (12:10)
[2021-10-21] MEDS ORDERED: *HR* Dextrose 50 % in Water (Syg) 50 ML SYRINGE IVP PRN (12:20)
[2021-10-21] MEDS ORDERED: Dextrose Gel 15 GM/37.5 ML TUBE PO PRN ×2 (12:20)
[2021-10-21] MEDS ORDERED: D5% in Water 1,000 ML IVC PRN (12:20)
[2021-10-21] MEDS ORDERED: Acetaminophen 325 MG TABLET PO PRN (13:28)
[2021-10-21] MEDS: Insulin LISPRO 300 UNITS/3 ML VIAL SUBQ SCH ×2 (13:29→18:17)
[2021-10-21] MEDS ORDERED: *HR* OxyCODONE/APAP 5/325 TABLET PO PRN (14:17)
[2021-10-21] MEDS ORDERED: *HR* FentaNYL (PF) 100 MCG/2 ML VIAL IVP ONE (15:26)
[2021-10-21] MEDS: *HR* Heparin 5,000 UNIT/ML VIAL SQ SCH (18:17)
[2021-10-21] MEDS: Metoprolol XL (24 HR) Succ 25 MG TAB.ER.24H PO SCH (18:17)
[2021-10-21] MEDS ORDERED: Insulin LISPRO 300 UNITS/3 ML VIAL SUBQ SCH (21:00)
[2021-10-22 02:10] LABS: Basophils # 0.2 K/mcL (0.0-0.2); Basophils % 1.2 %; Eosinophils # 0.2 K/mcL (0.0-0.6); Eosinophils % 1.3 %; Hematocrit 40.2 % (35.3-44.9); Hemoglobin 13.4 g/dL (11.5-15.4); Immature Granulocytes % 0.3 % (0-4); Lymphocytes # 4.1 K/mcL (0.6-4.6); Lymphocytes % 29.1 %; Mean Corpuscular HGB Conc 33.3 g/dL (31.6-35.5); Mean Platelet Volume 10.4 fL (9.4-12.4); Monocytes # 0.8 K/mcL (0.0-1.3); Monocytes % 5.8 %; Neutrophils # 8.7 K/mcL (1.6-8.9); Platelet Count 332 K/mcL (140-400); Red Blood Count 4.62 M/mcL (3.82-4.97); Red Cell Distribution Width 13.3 % (11.5-14.5); Segmented Neutrophils % 62.3 %
[2021-10-22 02:27] LABS: BUN/Creatinine Ratio 19 (6-26); Blood Urea Nitrogen 11 mg/dL (6-20); Calcium 8.4 mg/dL (8.6-10.3); Carbon Dioxide 21 mEq/L (23-29); Chloride 108 mEq/L (98-107); Chol/HDL Ratio 6.3 (0-4.9); Cholesterol 138 mg/dL (< 200); Glucose 138 mg/dL (70-105); HDL Cholesterol 22 mg/dL (40-59); LDL Cholesterol,Calculated 86 mg/dL (< 100); Magnesium 1.8 mg/dL (1.6-2.6); Osmolality,Calculated 280 (280-300); Phosphorous 3.2 mg/dL (2.7-4.5); Potassium 3.9 mEq/L (3.5-5.1); Sodium 134 mEq/L (136-145); Triglycerides 150 mg/dL (< 150)
[2021-10-22 02:42] VITALS: TEMP 98.7
[2021-10-22] MEDS: *HR* Heparin 5,000 UNIT/ML VIAL SQ SCH (03:26)
[2021-10-22 04:45] LABS: Estimated Average Glucose 192 mg/dl; Hemoglobin A1C 8.3 %
[2021-10-22 07:21] VITALS: BP 151/84; PULSE 58; O2SAT 100
[2021-10-22] MEDS: Metoprolol XL (24 HR) Succ 25 MG TAB.ER.24H PO SCH (07:51)
[2021-10-22] MEDS: Insulin LISPRO 300 UNITS/3 ML VIAL SUBQ SCH (07:53)
[2021-10-22] MEDS ORDERED: Aspirin 81 MG TAB.CHEW PO SCH (09:00)
== END 2021-10-22 09:08 | disposition left against medical advice (07) | DRG 174 ==
LOC: 3BNU 08:08 → EMEROOARM 08:08 → 3BNU 11:00 → SUATTDRO 11:26
PROVIDERS: ADMIT Internal Medicine; ATTEND Internal Medicine